=== PATIENT | female | born 1940 | race Caucasian/White ===

== ENCOUNTER 2017-05-01 12:00 | Emergency (ER) | payer OTHER ==
[2017-05-01] MEDS ORDERED: SODIUM CHLORIDE 1,000 ML IV STA (12:18)
[2017-05-01] MEDS ORDERED: ONDANSETRON 4 MG/2 ML VIAL IVPUSH ONE (12:18)
--- NOTE | 2017-05-01 12:48 | PDOC ---
History of Present Illness - General Chief Complaint: Nausea/Vomiting Stated Complaint: NAUSEA, VOMITING & DIZZINESS Time Seen by Provider: 05/01/17 12:17 History Source: Patient, Old Records Exam Limitations: No Limitations - History of Present Illness Initial Comments: 05/01/17 12:50 76-year-old female with history of hypertension and vertigo presents the emergency Department with complaints of feeling dizziness like the room is spinning with multiple episodes of nausea and vomiting this morning. The patient denies chest pain or difficulty breathing. She denies abdominal pain as well. The patient has been prescribed meclizine in the past and attempted to take it this morning however she was vomiting profusely and could not keep it down. The patient has had a workup for dizziness and tinnitus which included a CT head and an MRI in 2014 which were negative. The patient denies recent URI symptoms. She denies tinnitus at this time. Past History - Past Medical History Allergies/Adverse Reactions: Allergies Allergy/AdvReac Type Severity Reaction Status Date / Time No Known Allergies Allergy Verified 09/03/13 09:28 Home Medications: Ambulatory Orders Aspirin [ASA -] 81 mg PO DAILY #0 tab.chew 05/30/14 Famotidine [Pepcid] 40 mg PO DAILY 05/01/17 Levofloxacin [Levaquin] 500 mg PO DAILY #7 tablet 05/01/17 Anemia: No Asthma: No Cancer: No Cardiac Disorders: No CVA: No COPD: No CHF: No Dementia: No Diabetes: No GI Disorders: No Disorders: Yes (UTI) HTN: Yes Hypercholesterolemia: No Liver Disease: No Seizures: No Thyroid Disease: No - Surgical History Abdominal Surgery: Yes Appendectomy: No Cardiac Surgery: No Cholecystectomy: No GI Surgery: Yes (BLADDER LIFT) Lung Surgery: No Neurologic Surgery: No Orthopedic Surgery: No - Psycho/Social/Smoking Cessation Hx Anxiety: No Suicidal Ideation: No Smoking History: Never smoked Number of Cigarettes Smoked Daily: 0 Hx Alcohol Use: Yes (RARELY) Drug/Substance Use Hx: No Substance Use Type: None Hx Substance Use Treatment: No Review of Systems - Review of Systems Able to Perform ROS?: Yes Is the patient limited Andorran proficient: No Constitutional: Yes: See HPI HEENTM: No: Symptoms Reported Respiratory: No: Symptoms reported Cardiac (ROS): No: Symptoms Reported ABD/GI: Yes: See HPI : No: Symptoms Reported Musculoskeletal: No: Symptoms Reported Integumentary: No: Symptoms Reported Neurological: Yes: See HPI *Physical Exam - Physical Exam Comments: 05/01/17 12:51 GENERAL: Well developed, well nourished. Awake and alert. No acute distress. HEENT: Normocephalic, atraumatic. PERRLA, EOMI. No conjunctival pallor. Sclera are non- icteric. Moist mucous membranes. Oropharynx is clear. NECK: Supple. Full ROM. No JVD. No lymphadenopathy. CARDIOVASCULAR: Regular rate and rhythm. No murmurs, rubs, or gallops. Distal pulses are 2+ and symmetric. PULMONARY: No evidence of respiratory distress. Lungs clear to auscultation bilaterally. No wheezing, rales or rhonchi. ABDOMINAL: Soft. Non-tender. Non-distended. No rebound or guarding. No organomegaly. Normoactive bowel sounds. MUSCULOSKELETAL Normal range of motion at all joints. No bony deformities or tenderness. No CVA tenderness. EXTREMITIES: No cyanosis. No clubbing. No edema. No calf tenderness. SKIN: Warm and dry. Normal capillary refill. No rashes. No jaundice. NEUROLOGICAL: Alert, awake, appropriate. Cranial nerves 2-12 intact. Grossly non-focal exam. PSYCHIATRIC: Cooperative. Good eye contact. Appropriate mood and affect. ED Treatment Course - LABORATORY CBC & Chemistry Diagram: 05/01/17 13:00 05/01/17 13:00 - RADIOLOGY Radiology Studies Ordered: Category Date Time Status HEAD CT WITHOUT CONTRAST [CT] Stat CT Scan 05/01/17 12:18 Completed CHEST X-RAY PORTABLE* [RAD] Stat Radiology 05/01/17 12:18 Ordered Medical Decision Making - Medical Decision Making 05/01/17 12:51 76-year-old female with history of hypertension and vertigo presents to the emergency Department with complaints of dizziness as well as nausea and vomiting. Differential diagnosis includes but is not limited to: Vertigo, atypical presentation of ACS, dehydration, electrolyte abnormality, infection, toxic/metabolic derangement. Plan: 1. CT head 2. EKGshows normal sinus rhythm at 70 bpm with an occasional PVC but no acute ST segment changes 3. Labs and urine analysis 4. IV fluids for hydration 5. Antiemetics 6. Observe and reevaluate 05/01/17 15:53 Addendum: Labs are reviewed and are noted in the EMR. The urine analysis shows + 1 leukoesterase with white cells and red cells. I have reevaluated the patient at this time and she is feeling improved. The patient is tolerated water without nausea or vomiting. The patient is ambulatory with a steady gait. The plan is to discharge home with her son. Prescription for Levaquin has been sent to her pharmacy for the UTI and the first dose has been given in the emergency department. I've advised the patient that she should follow-up with her primary care physician is Dr. Heath within the next 1-3 days and return to the emergency department if symptoms persist, worsen, or new symptoms arise. *DC/Admit/Observation/Transfer Diagnosis at time of Disposition: Dizziness, Urinary tract infection - Discharge Dispostion Disposition: HOME Condition at time of disposition: Stable Admit: No - Prescriptions Prescriptions: Levofloxacin [Levaquin] 500 mg PO DAILY #7 tablet - Referrals Referrals: Maurice Heath MD [Primary Care Provider] - - Patient Instructions Additional Instructions: You're being treated for urinary tract infection with Levaquin 500 mgtake 1 pill daily for the next 7 days. You may take meclizine 25-50 mg every 6 hours as needed for dizziness. Please follow-up with Dr. Heath within the next 1-3 days and return to the emergency department if your symptoms persist, worsen, recur or new symptoms arise.
[2017-05-01 12:49] VITALS: TEMP 97.6; BMI 29.2
[2017-05-01] MEDS ORDERED: ONDANSETRON 4 MG/2 ML VIAL ONE (12:54)
[2017-05-01 13:23] LABS: BASOPHIL 0.8 % (0-2.0); EOSINOPHIL 0.7 % (0-4.5); MCH 30.5 pg (25.7-33.7); MCHC 36.1 g/dl (32.0-36.0); MEAN CELL VOLUME 84.4 fl (80-96); MEAN PLT VOLUME 7.2 fl (7.5-11.1); NEUTROPHILS 80.7 % (42.8-82.8); PLATELET COUNT 231 K/MM3 (134-434); RDW 13.4 % (11.6-15.6); WHITE BLOOD COUNT 4.6 K/mm3 (4.0-10.8)
[2017-05-01 13:34] LABS: ALBUMIN 3.9 g/dl (3.5-5.0); ALK PHOS 61 U/L (32-92); ANION GAP 6 (8-16); BILIRUBIN,TOTAL 0.7 mg/dl (0.2-1.0); CALCIUM 9.1 mg/dl (8.4-10.2); CO2 28 mmol/L (22-28); CPK 66 IU/L (26-192); CREATININE 0.8 mg/dl (0.6-1.3); GLUCOSE,RANDOM 152 mg/dl (74-106); SGOT/AST 17 U/L (10-42); SGPT/ALT 11 U/L (10-40); TOT PROT 6.5 g/dl (6.4-8.3)
[2017-05-01] MEDS ORDERED: MECLIZINE HCL 25 MG TABLET (FP) PO ONE (13:53)
[2017-05-01 13:54] LABS: TROPONIN I (DFP) < 0.03 ng/ml (0.03-0.50)
[2017-05-01] MEDS ORDERED: MECLIZINE HCL 25 MG TABLET (FP) ONE (13:59)
[2017-05-01 14:08] VITALS: BP 160/67; PULSE 65
[2017-05-01] MEDS ORDERED: ACETAMINOPHEN 325 MG TABLET (FP) PO ONE (15:02)
[2017-05-01] MEDS ORDERED: ACETAMINOPHEN 325 MG TABLET (FP) ONE (15:05)
[2017-05-01 15:22] LABS: URINE APPEARANCE Clear; URINE BILIRUBIN Negative (NEGATIVE); URINE BLOOD Trace-intact (NEGATIVE); URINE COLOR YELLOW; URINE GLUCOSE (UA) Negative (NEGATIVE); URINE KETONE Negative (NEGATIVE); URINE LEUK ESTERASE 2+ (NEGATIVE); URINE NITRITE Negative (NEGATIVE); URINE PROTEIN Negative (NEGATIVE); URINE UROBILINOGEN 0.2 (0.2-1.0)
[2017-05-01] MEDS ORDERED: LEVOFLOXACIN 500 MG TABLET (FP) PO ONE (15:54)
[2017-05-01] MEDS ORDERED: LEVOFLOXACIN 500 MG TABLET (FP) ONE (16:06)
--- NOTE | 2017-05-02 19:17 | EKG ---
Test Reason : Blood Pressure : / mmHG Vent. Rate : 071 BPM Atrial Rate : 071 BPM P-R Int : 164 ms QRS Dur : 094 ms QT Int : 404 ms P-R-T Axes : 070 014 050 degrees QTc Int : 439 ms SINUS RHYTHM WITH OCCASIONAL PREMATURE VENTRICULAR COMPLEXES POSSIBLE LEFT ATRIAL ENLARGEMENT BORDERLINE ECG NO PREVIOUS ECGS AVAILABLE Confirmed by ORIANA BURRELL MD ([id number]) on 05/02/2017 7:16:56 PM Referred By: ANGELIA HER Confirmed By:ORIANA BURRELL MD
== END 2017-05-01 16:20 | disposition home or self-care (01) ==
LOC: FER 12:00
PROC: 3E033GC Introduction of Other Therapeutic Substance into Peripheral Vein, Percutaneous Approach (ICD-10-PCS; principal; 2017-05-01)
PROC: 3E0337Z Introduction of Electrolytic and Water Balance Substance into Peripheral Vein, Percutaneous Approach (ICD-10-PCS; 2017-05-01)
DX: N39.0 Urinary tract infection, site not specified (principal); R42 Dizziness and giddiness
CPT/HCPCS: 36415; 70450-TC; 71010-TC; 80053; 81003; 81015; 84484; 85025; 87086; 93005; 96361; 96374; 99283-25

== ENCOUNTER 2017-11-03 20:15 | Inpatient (IN) | payer OTHER ==
--- NOTE | 2017-11-03 20:25 | PDOC ---
History of Present Illness - History of Present Illness Initial Comments: 11/03/17 20:30 The patient is a 77 year old female with history of hypertension who presents to the ED complaining of diffuse, crampy abdominal pain with associated nausea and nonbloody nonbilious vomiting. She now also complains of a burning sensation radiating up her midchest secondary to vomiting. No fever or chills. No palpitations or shortness of breath. No constipation or diarrhea. PAST MEDICAL HISTORY: htn PAST SURGICAL HISTORY: bladder lift FAMILY HISTORY: no pertinent history MEDICATIONS: reviewed ALLERGIES: As per nursing notes Adult ROS General: No fevers or chills, no weakness, no weight loss HEENT: No change in vision. No sore throat,. No ear pain CardioVascular: No chest pain or shortness of breath Respiratory:No cough, or wheezing. Gastrointestinal: +diffuse abdominal cramping, nausea, NBNB vomiting. No diarrhea or constipation, No rectal bleeding Genitourinary: No dysuria, hematuria, or frequency Musculoskeletal: No joint or muscle pain or swelling Neurologic: No headache, vertigo, dizziness or loss of consciousness Psychiatric: nor depression Skin: No rashes or easy bruising Endocrine: no increased thirst or abnormal weight change Allergic: no skin or latex allergy All other systems reviewed and normal Adult Exam: General: Well-nourished well-developed individual, no acute distress HEENT: Throat: Normal, tonsils normal, no erythema or exudate. +Dry mucous membranes. Neck: Supple, no meningeal signs, no lymphadenopathy Eyes::Pupils equal reactive and round, extraocular motion intact Chest: Nontender to palpation Cardiac: S1-S2 normal, regular rate and rhythm, no murmurs rubs or gallops Respiratory: Lungs clear to auscultation bilateral Abdomen: Soft, nondistended, normal bowel sounds, nontender to palpation diffusely Extremities: Warm, dry, no cyanosis, clubbing, or edema Skin: No rashes Neuro: Alert and oriented x3, nonfocal exam, grossly intact, normal gait Psych: Normal mood and affect 11/03/17 20:34 Documentation prepared by Adelina King, acting as medical support specialist for Harriet Ornelas MD. <Adelina King - Last Filed: 11/03/17 20:30> - General History Source: Patient Exam Limitations: No Limitations - History of Present Illness Initial Comments: Medical decision making: This is a 77-year-old female comes in complaining of nausea vomiting times this afternoon. Began with some crampy abdominal pain. Patient appears clinically dry we'll obtain labs to rule out electrolyte abnormalities and an infectious causes. CBC, comp, cardiac profile, lipase sent EKG ordered to rule out cardiac causes as there is a radiation and burning sensation towards into her chest. Will reassess and follow up 11/03/17 22:25 Reevaluation patient said she still has some mild nausea and a mild headache. Will medicate with some IV Pepcid and by mouth Tylenol. 11/03/17 23:08 Patient feels better post Reglan and Tylenol. Patient now appears well-hydrated assessment and plan: This is a 77-year-old female comes in complaining of some nausea and vomiting but no diarrhea, fevers. Patient was clinically mildly dehydrated on arrival. Patient was hydrated with a liter of fluid and antiemetics. Patient able to tolerate by mouth's will discharge patient home with a prescription for his Zofran and have her follow-up with her primary care doctor. <Harriet Ornelas I - Last Filed: 11/03/17 23:09> - General Chief Complaint: Nausea/Vomiting Stated Complaint: NAUSEA/VOMITING Time Seen by Provider: 11/03/17 20:17 Past History <Adelina King - Last Filed: 11/03/17 20:30> - Past Medical History Anemia: Yes Asthma: No Cancer: No Cardiac Disorders: No CVA: No COPD: No CHF: No Dementia: No Diabetes: No GI Disorders: No Disorders: Yes (UTI) HTN: Yes Hypercholesterolemia: No Liver Disease: No Seizures: No Thyroid Disease: No - Surgical History Abdominal Surgery: Yes Appendectomy: No Cardiac Surgery: No Cholecystectomy: No GI Surgery: Yes (BLADDER LIFT) Lung Surgery: No Neurologic Surgery: No Orthopedic Surgery: No - Suicide/Smoking/Psychosocial Hx Smoking History: Unknown if ever smoked Have you smoked in the past 12 months: No Number of Cigarettes Smoked Daily: 0 Information on smoking cessation initiated: No Hx Alcohol Use: Yes (RARELY) Drug/Substance Use Hx: No Substance Use Type: None Hx Substance Use Treatment: No <Harriet Ornelas I - Last Filed: 11/03/17 23:09> - Past Medical History Allergies/Adverse Reactions: Allergies Allergy/AdvReac Type Severity Reaction Status Date / Time No Known Allergies Allergy Verified 09/03/13 09:28 Home Medications: Ambulatory Orders Aspirin [ASA -] 81 mg PO DAILY #0 tab.chew 05/30/14 Famotidine [Pepcid] 40 mg PO DAILY 05/01/17 Ondansetron [Zofran Odt -] 4 mg SL TID #14 od.tablet 11/03/17 *Physical Exam - Vital Signs Last Vital Signs Temp Pulse Resp BP Pulse Ox 98 F 73 16 158/86 100 11/03/17 20:19 11/03/17 20:19 11/03/17 20:19 11/03/17 20:19 11/03/17 20:19 <Adelina King - Last Filed: 11/03/17 20:30> - Vital Signs Last Vital Signs Temp Pulse Resp BP Pulse Ox 98 F 73 16 158/86 100 11/03/17 20:19 11/03/17 20:19 11/03/17 20:19 11/03/17 20:19 11/03/17 20:19 <Harriet Ornelas I - Last Filed: 11/03/17 23:09> ED Treatment Course - LABORATORY CBC & Chemistry Diagram: 11/03/17 20:48 11/03/17 20:48 <Harriet Ornelas I - Last Filed: 11/03/17 23:09> *DC/Admit/Observation/Transfer <Adelina King - Last Filed: 11/03/17 20:30> - Discharge Dispostion Admit: No <Harriet Ornelas I - Last Filed: 11/03/17 23:09> Diagnosis at time of Disposition: Dehydration Nausea & vomiting Qualifiers: Vomiting type: unspecified Vomiting Intractability: non-intractable Qualified Code(s): R11.2 - Nausea with vomiting, unspecified - Discharge Dispostion Disposition: HOME Condition at time of disposition: Stable - Prescriptions Prescriptions: Ondansetron [Zofran Odt -] 4 mg SL TID #14 od.tablet - Referrals Referrals: Fader,Maurice M, MD [Primary Care Provider] - - Patient Instructions Printed Discharge Instructions: DI for Vomiting -- Adult Additional Instructions: Clear liquids only for the next 6 hours.. Zofran sublingual one every 6-8 hours if needed for nausea After that if you have had no further vomiting you may have bananas, rice, applesauce, or toast. If no further vomiting for another 8 hours you may have regular food. If you vomit again then nothing to eat or drink for 2 hours. then start back with the clear liquids. Return to the emergency department immediately with ANY new, persistent or worsening symptoms. You MUST call and follow up with your doctor tomorrow if not better. Please make sure your doctor reviews the results of your emergency evaluation. Return to the emergency department immediately with ANY new, persistent or worsening symptoms. Continue any medications as previously prescribed by your physician. You should follow up with your primary doctor as soon as possible regarding today's emergency department visit. . Please make sure your doctor reviews the results of your emergency evaluation. Thank you for coming to the Emergency Department today for your care. It was a pleasure to see you today. Please note that your evaluation is INCOMPLETE until you follow-up with your doctor. - Post Discharge Activity
[2017-11-03] MEDS ORDERED: SODIUM CHLORIDE 1,000 ML IV ONE (20:31)
[2017-11-03] MEDS ORDERED: FAMOTIDINE IV 20 MG/12 ML VIAL IVPUSH ONE (20:31)
[2017-11-03] MEDS ORDERED: ONDANSETRON 4 MG/2 ML VIAL IVPB ONE (20:31)
[2017-11-03] MEDS ORDERED: ONDANSETRON 4 MG/2 ML VIAL ONE (20:37)
[2017-11-03] MEDS ORDERED: FAMOTIDINE 20 MG/50 ML IVPB 20 MG/50 ML MG IVPB ONE (20:37)
[2017-11-03 21:00] LABS: BASO % 0.1 % (0-2.0); HEMATOCRIT 37.2 % (32.4-45.2); MCH 30.4 pg (25.7-33.7); MEAN CELL VOLUME 86.8 fl (80-96); MEAN PLT VOLUME 7.8 fl (7.5-11.1); MONO % 10.6 % (3.8-10.2); NEUT % 85.3 % (42.8-82.8); PLATELET COUNT 232 K/MM3 (134-434); RBC 4.29 M/mm3 (3.60-5.2); RDW 12.8 % (11.6-15.6); WHITE BLOOD COUNT 9.7 K/mm3 (4.0-10.8)
[2017-11-03 21:12] LABS: ALBUMIN 4.1 g/dl (3.5-5.0); ALK PHOS 65 U/L (32-92); ANION GAP 8 (8-16); BILIRUBIN,TOTAL 0.8 mg/dl (0.2-1.0); BLOOD UREA NITROGEN 28 mg/dl (7-18); CALCIUM 8.6 mg/dl (8.4-10.2); CHLORIDE 100 mmol/L (98-107); CO2 29 mmol/L (22-28); CREATININE 0.8 mg/dl (0.6-1.3); GLUCOSE,RANDOM 151 mg/dl (74-106); POTASSIUM 4.2 mmol/L (3.5-5.1); SGOT/AST 31 U/L (10-42); SGPT/ALT 15 U/L (10-40); SODIUM 137 mmol/L (136-145); TOT PROT 6.6 g/dl (6.4-8.3)
[2017-11-03 22:27] LABS: LIPASE 747 U/L (73-393)
[2017-11-03] MEDS ORDERED: ACETAMINOPHEN 325 MG TABLET (FP) PO ONE (22:27)
[2017-11-03] MEDS ORDERED: METOCLOPRAMIDE HCL INJECTION 10 MG/2 ML VIAL IVPUSH ONE (22:27)
[2017-11-03] MEDS ORDERED: ACETAMINOPHEN 325 MG TABLET (FP) ONE (22:37)
--- NOTE | 2017-11-03 23:19 | PDOC ---
*Physical Exam - Vital Signs Last Vital Signs Temp Pulse Resp BP Pulse Ox 98 F 73 16 158/86 100 11/03/17 20:19 11/03/17 20:19 11/03/17 20:19 11/03/17 20:19 11/03/17 20:19 ED Treatment Course - LABORATORY CBC & Chemistry Diagram: 11/04/17 10:26 11/04/17 10:26 - ADDITIONAL ORDERS Additional order review: Laboratory Results 11/03/17 11/03/17 11/03/17 20:48 20:48 20:48 Sodium 137 Potassium 4.2 Chloride 100 Carbon Dioxide 29 H Anion Gap 8 BUN 28 H Creatinine 0.8 Creat Clearance w eGFR > 60 Random Glucose 151 H D Calcium 8.6 Total Bilirubin 0.8 AST 31 D ALT 15 D Alkaline Phosphatase 65 Creatine Kinase 67 Troponin I < 0.03 Total Protein 6.6 Albumin 4.1 Lipase 747 H 11/03/17 20:48 RBC 4.29 MCV 86.8 MCHC 35.0 RDW 12.8 MPV 7.8 Neutrophils % 85.3 H Lymphocytes % 3.0 L Monocytes % 10.6 H Eosinophils % 1.0 Basophils % 0.1 - Medications Given in the ED: ED Medications Discontinued Medications Generic Name Dose Route Start Last Admin Trade Name Freq PRN Reason Stop Dose Admin Acetaminophen 650 mg 11/03/17 22:27 11/03/17 22:40 Tylenol - PO 11/03/17 22:28 650 mg ONCE ONE Administration Famotidine 20 mg in 12 mls @ 144 mls/hr 11/03/17 20:31 11/03/17 20:47 Pepcid 20 Mg/12 Ml Push IVPUSH 11/03/17 20:35 144 mls/hr ONCE ONE Administration Sodium Chloride 1,000 mls @ 1,000 mls/hr 11/03/17 20:31 11/03/17 20:46 Normal Saline - IV 11/03/17 21:30 1,000 mls/hr .Q1H ONE Administration Metoclopramide HCl 10 mg 11/03/17 22:27 11/03/17 22:40 Reglan Injection - IVPUSH 11/03/17 22:28 10 mg ONCE ONE Administration Ondansetron HCl 8 mg 11/03/17 20:31 11/03/17 20:48 Zofran Injection IVPB 11/03/17 20:32 8 mg ONCE ONE Administration Progress Note - Progress Note Progress Note: Shortly after patient was told she could E discharged I realized that her lipase was markedly elevated at 757. Patient unfortunately had left the emergency room so I called her and she came back for a CAT scan and probable admission. 01:30 Reassessment patient comfortable at this time no further vomiting CT scan shows no evidence of acute pancreatitis however does show cholelithiasis with some intrahepatic biliary dilatation Patient's elevated lipase most likely is secondary to cholelithiasis and biliary disease. We'll obtain an ultrasound to further delineate patient's biliary tract. 06:00 US no acute cholecystitis; +gallstones, will place in observation as pt still nausous and lipase will need repeating. Discussed with admitting hospitalist was accepted patient for observation status. *DC/Admit/Observation/Transfer Diagnosis at time of Disposition: Dehydration Nausea & vomiting Qualifiers: Vomiting type: unspecified Vomiting Intractability: non-intractable Qualified Code(s): R11.2 - Nausea with vomiting, unspecified Cholelithiasis Qualifiers: Cholelithiasis location: gallbladder Cholecystitis presence: without cholecystitis - Discharge Dispostion Admit: Yes - Prescriptions - Referrals - Patient Instructions - Post Discharge Activity
[2017-11-04] MEDS ORDERED: SODIUM CHLORIDE 1,000 ML IV SCH ×2 (07:00)
[2017-11-04] MEDS: ENALAPRIL MALEATE 10 MG TABLET (FP) PO SCH (09:52)
[2017-11-04] MEDS ORDERED: FAMOTIDINE 20 MG TABLET PO SCH (10:00)
[2017-11-04] MEDS ORDERED: ASPIRIN 81 MG CHEWABLE TABLETS PO SCH (10:00)
[2017-11-04 10:07] VITALS: BMI 24.3
[2017-11-04 10:40] LABS: BASO % 0.1 % (0-2.0); EOS % 1.4 % (0-4.5); HEMOGLOBIN 11.7 GM/dl (10.7-15.3); LYMPH % 5.3 % (8-40); MCH 29.5 pg (25.7-33.7); MCHC 33.3 g/dl (32.0-36.0); MEAN CELL VOLUME 88.7 fl (80-96); MEAN PLT VOLUME 8.4 fl (7.5-11.1); MONO % 6.7 % (3.8-10.2); NEUT % 86.5 % (42.8-82.8); PLATELET COUNT 218 K/MM3 (134-434); RBC 3.95 M/mm3 (3.60-5.2); RDW 12.8 % (11.6-15.6); WHITE BLOOD COUNT 5.1 K/mm3 (4.0-10.8)
[2017-11-04 11:06] LABS: ALBUMIN 3.3 g/dl (3.5-5.0); ALK PHOS 60 U/L (32-92); ANION GAP 8 (8-16); BLOOD UREA NITROGEN 25 mg/dl (7-18); CALCIUM 8.1 mg/dl (8.4-10.2); CHLORIDE 101 mmol/L (98-107); CO2 26 mmol/L (22-28); GLUCOSE,RANDOM 116 mg/dl (74-106); MAGNESIUM 1.6 mg/dL (1.8-2.4); PHOSPHOROUS 3.2 mg/dl (2.5-4.6); SGOT/AST 31 U/L (10-42); SGPT/ALT 18 U/L (10-40); SODIUM 135 mmol/L (136-145); TOT PROT 5.6 g/dl (6.4-8.3)
[2017-11-04 11:19] LABS: URINE APPEARANCE Clear; URINE BILIRUBIN Negative (NEGATIVE); URINE GLUCOSE (UA) Negative (NEGATIVE); URINE KETONE Negative (NEGATIVE); URINE NITRITE Negative (NEGATIVE); URINE PROTEIN Negative (NEGATIVE); URINE UROBILINOGEN 0.2 (0.2-1.0)
[2017-11-04 11:20] LABS: URINE BLOOD Trace-lysed (NEGATIVE); URINE LEUK ESTERASE TRACE (NEGATIVE)
[2017-11-04 11:22] LABS: URINE COLOR YELLOW
[2017-11-04] MEDS ORDERED: SODIUM CHLORIDE 500 ML IV STA (11:36)
[2017-11-04] MEDS: SODIUM CHLORIDE 1,000 ML IV SCH (11:45)
[2017-11-04 11:47] LABS: CREATININE < 0.8 mg/dl (0.6-1.3)
--- NOTE | 2017-11-04 14:06 | PN ---
Progress Note (short form) - Note Progress Note: Consult called for Dr. Campuzano. Had d/w 2nd floor [place] staff and MANUEL Garcia. They are aware Dr. Campuzano is on vacation. While I am covering him I am not concession manager this weekend and the coverage I have for [facility] not available to cover [place]. I explained this to them and that the patient would need proper continued coverage after the initial consult. In review of the [employer] system it appears as though patient is a patient of Dr. Jona Crouch. They explained that he was called but unavailable. They also called Dr. Sahu and are awaiting call back. I explained that if they cannot obtain a sv[employer] research [employer] operations to follow the patient at [place] and potentially through the weekend if necessary, The patient should be transferred to [facility] today for evaluation.
--- NOTE | 2017-11-04 14:57 | HP ---
CHIEF COMPLAINT: Vomiting PCP: Dr. Heath HISTORY OF PRESENT ILLNESS: The patient is a 77 year-old female with a PMH significant for HTN. Presented to the [facility] ED last night with acute onset of nausea, vomiting, abdominal pain, and a burning sensation radiating up to her midchest. She was discharged to home but called back when she was found to have an elevatd lipase. MRCP shows choledocholilithiasis in distal CBD and mild proximal CBD and intrahepatic ductal dilitation. ER course was notable for: (1) MRCP as above (2) Lipase 747 Recent Travel: No PAST MEDICAL HISTORY: Hypertension PAST SURGICAL HISTORY: Bladder lift Social History: Smoking: never Alcohol: rare Drugs: no Family History: Allergies No Known Allergies Allergy (Verified 09/03/13 09:28) HOME MEDICATIONS: Home Medications Medication Instructions Recorded Aspirin [ASA -] 81 mg PO DAILY #0 tab.chew 05/30/14 Famotidine [Pepcid] 40 mg PO DAILY 05/01/17 Ondansetron [Zofran Odt -] 4 mg SL TID #14 od.tablet 11/03/17 REVIEW OF SYSTEMS CONSTITUTIONAL: Absent: fever, chills, diaphoresis, generalized weakness, malaise, loss of appetite, weight change HEENT: Absent: rhinorrhea, nasal congestion, throat pain, throat swelling, difficulty swallowing, mouth swelling, ear pain, eye pain, visual changes CARDIOVASCULAR: Absent: chest pain, syncope, palpitations, irregular heart rate, lightheadedness , peripheral edema RESPIRATORY: Absent: cough, shortness of breath, dyspnea with exertion, orthopnea, wheezing, stridor, hemoptysis GASTROINTESTINAL: +abdominal pain, nausea, vomiting Absent: abdominal distension, diarrhea, constipation, melena, hematochezia GENITOURINARY: Absent: dysuria, frequency, urgency, hesitancy, hematuria, flank pain, genital pain MUSCULOSKELETAL: Absent: myalgia, arthralgia, joint swelling, back pain, neck pain SKIN: Absent: rash, itching, pallor HEMATOLOGIC/IMMUNOLOGIC: Absent: easy bleeding, easy bruising, lymphadenopathy, frequent infections ENDOCRINE: Absent: unexplained weight gain, unexplained weight loss, heat intolerance, cold intolerance NEUROLOGIC: Absent: headache, focal weakness or paresthesias, dizziness, unsteady gait, seizure, mental status changes, bladder or bowel incontinence PSYCHIATRIC: Absent: anxiety, depression, suicidal or homicidal ideation, hallucinations. PHYSICAL EXAMINATION Vital Signs - 24 hr 11/03/17 11/04/17 11/04/17 20:19 06:00 09:50 Temperature 98 F 99.5 F 98.8 F Pulse Rate 73 71 Pulse Rate [ 73 Radial] Respiratory 16 16 16 Rate Blood Pressure 158/86 123/59 Blood Pressure 128/67 [Arm] O2 Sat by Pulse 100 97 Oximetry (%) 11/04/17 11/04/17 11:36 14:41 Temperature 98.5 F 98.5 F Pulse Rate 79 71 Pulse Rate [ Radial] Respiratory 18 20 Rate Blood Pressure 120/59 122/57 Blood Pressure [Arm] O2 Sat by Pulse Oximetry (%) GENERAL: Awake, alert, and fully oriented, in no acute distress. HEAD: Normal with no signs of trauma. EYES: Pupils equal, round and reactive to light, extraocular movements intact, sclera anicteric, conjunctiva clear. No lid lag. EARS, NOSE, THROAT: Ears normal, nares patent, oropharynx clear without exudates. Moist mucous membranes. NECK: Normal range of motion, supple without lymphadenopathy, JVD, or masses. LUNGS: Breath sounds equal, clear to auscultation bilaterally. No wheezes, and no crackles. No accessory muscle use. HEART: Regular rate and rhythm, normal S1 and S2 without murmur, rub or gallop. ABDOMEN: Soft, nontender, not distended, normoactive bowel sounds, no guarding, no rebound MUSCULOSKELETAL: Normal range of motion at all joints. No bony deformities or tenderness. No CVA tenderness. UPPER EXTREMITIES: 2+ pulses, warm, well-perfused. No cyanosis. No clubbing. No peripheral edema. LOWER EXTREMITIES: 2+ pulses, warm, well-perfused. No calf tenderness. No peripheral edema. NEUROLOGICAL: Cranial nerves II-XII intact. Normal speech. SKIN: Warm, dry, normal turgor Laboratory Results - last 24 hr 11/03/17 11/03/17 11/03/17 20:48 20:48 20:48 WBC 9.7 RBC 4.29 Hgb 13.0 Hct 37.2 MCV 86.8 MCH 30.4 MCHC 35.0 RDW 12.8 Plt Count 232 MPV 7.8 Neutrophils % 85.3 H Lymphocytes % 3.0 L Monocytes % 10.6 H Eosinophils % 1.0 Basophils % 0.1 Sodium 137 Potassium 4.2 Chloride 100 Carbon Dioxide 29 H Anion Gap 8 BUN 28 H Creatinine 0.8 Creat Clearance w eGFR > 60 Random Glucose 151 H D Calcium 8.6 Phosphorus Magnesium Total Bilirubin 0.8 AST 31 D ALT 15 D Alkaline Phosphatase 65 Creatine Kinase Troponin I < 0.03 Total Protein 6.6 Albumin 4.1 Lipase 747 H Urine Color Urine Appearance Urine pH Ur Specific [place] Urine Protein Urine Glucose (UA) Urine Ketones Urine Blood Urine Nitrite Urine Bilirubin Urine Urobilinogen Ur Leukocyte Esterase 11/03/17 11/04/17 11/04/17 20:48 06:45 10:26 WBC 5.1 D RBC 3.95 Hgb 11.7 Hct 35.0 MCV 88.7 MCH 29.5 MCHC 33.3 RDW 12.8 Plt Count 218 MPV 8.4 Neutrophils % 86.5 H Lymphocytes % 5.3 L Monocytes % 6.7 Eosinophils % 1.4 Basophils % 0.1 Sodium Potassium Chloride Carbon Dioxide Anion Gap BUN Creatinine Creat Clearance w eGFR Random Glucose Calcium Phosphorus Magnesium Total Bilirubin AST ALT Alkaline Phosphatase Creatine Kinase 67 Troponin I Total Protein Albumin Lipase 123 Urine Color Urine Appearance Urine pH Ur Specific [place] Urine Protein Urine Glucose (UA) Urine Ketones Urine Blood Urine Nitrite Urine Bilirubin Urine Urobilinogen Ur Leukocyte Esterase 11/04/17 11/04/17 10:26 10:33 WBC RBC Hgb Hct MCV MCH MCHC RDW Plt Count MPV Neutrophils % Lymphocytes % Monocytes % Eosinophils % Basophils % Sodium 135 L Potassium 4.0 Chloride 101 Carbon Dioxide 26 Anion Gap 8 BUN 25 H Creatinine < 0.8 Creat Clearance w eGFR > 60 Random Glucose 116 H D Calcium 8.1 L Phosphorus 3.2 Magnesium 1.6 L Total Bilirubin 1.0 D AST 31 ALT 18 Alkaline Phosphatase 60 Creatine Kinase Troponin I Total Protein 5.6 L Albumin 3.3 L Lipase Urine Color Yellow Urine Appearance Clear Urine pH 5.0 Ur Specific [place] <= 1.005 Urine Protein Negative Urine Glucose (UA) Negative Urine Ketones Negative Urine Blood Trace-lysed H Urine Nitrite Negative Urine Bilirubin Negative Urine Urobilinogen 0.2 Ur Leukocyte Esterase Trace H D ASSESSMENT/PLAN: 77 year-old female with a PMH significant for HTN. Admitted for choledocholilithiasis. Choledocholilithiasis --MRCP: choledocholilithiasis in distal CBD; mild proximal CBD and intrahepatic ductal dilitation --no fever, no jaundice, benign abdominal exam; lipase normalized, LFTs wnl --collect and send blood cultures; no antibiotics for now --IV fluids --NPO --home ASA held --transfer to [facility] for ERCP with Dr. Lopes --surgery Dr. Martinez will follow Hypertension --BP stable --continue enalapril Hypomagnesemia --repleted FEN Fluids: NS 500mL x 1; then 125mL/hr Electrolytes: replete as indicated Nutrition: NPO DVT prophylaxis: mechanical only due to upcoming procedures Physical therapy evaluation Dispo: continues to require inpatient care. Full code. Visit type - Emergency Visit Emergency Visit: Yes ED Registration Date: 11/04/17 Care time: The patient presented to the Emergency Department on the above date and was hospitalized for further evaluation of their emergent condition. - New Patient This patient is new to me today: Yes Date on this admission: 11/04/17 - Critical Care Critical Care patient: No
[2017-11-04] MEDS ORDERED: MAGNESIUM SULF 50% (8.12 MEQ/2 ML-1 GM VIAL) IVPB ONE (15:02)
[2017-11-04] MEDS ORDERED: MAGNESIUM SULFATE IN WATER 2 GM/50 ML IVPB IVPB ONE (15:30)
[2017-11-04] MEDS ORDERED: oxyCODONE HCL 5 MG TABLET PO ONE (16:21)
[2017-11-04 17:35] LABS: URIC ACID CRYSTALS FEW /hpf (NONE SEEN); URINE BACTERIA FEW /hpf (NEGATIVE); URINE RBC 0-2 /hpf (0-3)
--- NOTE | 2017-11-04 17:36 | CON.GI ---
Consult Consult Specialty:: GI: Dr. Barrientos Covering for Dr. Campuzano Referred by:: Hospitalist Service Reason for Consultation:: Nausea/vomiting, choledocholithiasis - History of Present Illness Chief Complaint: Nausea / Vomiting History of Present Illness: 77F admitted through [facility] ER last night for evaluation of N/V. She states that the nausea started abruptly, around 7 pm last night along with bilious vomiting. She did have some upper abdominal discomfort that occurred only after the retching and vomiting. There3 was no diarrhea. She denies any recent travel or sick contacts with similar complaints. She does recall having similar episodes in the past along with episodes of severe nausea after eating after which she would try inducing vomiting. In ER she was noted to be afebrile , and had blood work revealing a WBC of 9.7. LFT's were normal and lipase was elevated [place] 747. CT scan revealed a large gallstone without evidence of cholecystitis. MRCP revealed a mildly dilated CBD of 8mm, dilated intrahepatics and small filling defect in the distal duct. She has had previous GI work-up with Dr. Jona Crouch and she recalls having colonoscopy and possibly endoscopy as well however does not recall findings. She does not remember being told of polyps. She currently denies abdominal pain and says that she felt cold when having the MRCP performed. 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 Place of : Other ([place]) History of Recent Travel: No Home Medications - Allergies Allergies/Adverse Reactions: Allergies Allergy/AdvReac Type Severity Reaction Status Date / Time No Known Allergies Allergy Verified 09/03/13 09:28 - Home Medications Home Medications: Ambulatory Orders Aspirin [ASA -] 81 mg PO DAILY #0 tab.chew 05/30/14 Famotidine [Pepcid] 40 mg PO DAILY 05/01/17 Ondansetron [Zofran Odt -] 4 mg SL TID #14 od.tablet 11/03/17 Family Disease History - Family Disease History Family Disease History: Heart Disease: Mother (: 66: [place]), Other: Father ( : 80: CVA), Brother (4: healthy), Sister (4: healthy), Son (2, healthy) Other Family History: No family history of colorectal cancer or other GI malignancy Review of Systems - Review of Systems Constitutional: reports: Chills. denies: Unintentional Wgt. Loss Cardiovascular: denies: Chest Pain Respiratory: denies: SOB Gastrointestinal: reports: Abdominal Pain, Indigestion, Nausea, Vomiting. denies: Constipation, Melena, Rectal Bleeding, Vomiting Blood Physical Exam-GI Vital Signs: Vital Signs Temperature 99.9 F Oral, 101.1 Rectal 11/04/17 17:00 Pulse Rate 71 11/04/17 17:00 Respiratory Rate 20 11/04/17 17:00 Blood Pressure 122/57 11/04/17 17:00 O2 Sat by Pulse Oximetry (%) 97 11/04/17 17:00 Constitutional: Yes: Calm Eyes: No: Sclera Icterus Cardiovascular: Yes: Regular Rate and Rhythm. No: Murmur Respiratory: Yes: CTA Bilaterally Gastrointestinal Inspection: Yes: Scars (horizontal pelvic surgical scar). No: Distention ...Auscultate: Yes: Normoactive Bowel Sounds ...Palpate: Yes: Other (Negative Jarquin's). No: Guarding, Hepatomegaly, Splenomegaly, Tenderness ...Percussion: No: Tympanitic Edema: No (No LE edema) Neurological: Yes: Alert, Oriented Labs: CBC, BMP 11/04/17 10:26 11/04/17 10:26 Hepatic Panel Total Bilirubin 1.0 mg/dl (0.2-1.0) D 11/04/17 10:26 AST 31 U/L (10-42) 11/04/17 10:26 ALT 18 U/L (10-40) 11/04/17 10:26 Alkaline Phosphatase 60 U/L (32-92) 11/04/17 10:26 Albumin 3.3 g/dl (3.5-5.0) L 11/04/17 10:26 Imaging - Results Cat Scan: Report Reviewed, Image Reviewed MRI: Report Reviewed Problem List - Problems (1) Nausea & vomiting Assessment/Plan: Imp: With dilated biliary tract and small filling defect noted in the distal duct. Lipase transiently elevated as well. Given history and current presentation ? if Ms. Jeter has been having intermittent passage of small stones, biliary colic secondary to the large gallstone described or both. Temp noted 101.1 tonight during eval Plan: NPO IV Hydration IV Abx AM labs ordered including coags and T&S Plan is for patient to be transferred to [facility] for continued monitoring and in preparation for ERCP. I discussed the plan with Ms. Jeter and discussed the procedure. We discussed potential risks of the procedure like but not limited to bleeding, perforation requiring surgery to repair, infection, sedation medication effects, pancreatitis (5-10% of the cases) all of which could be potentially life threatening. She has agreed to the procedure. Surgical consult as she will need cholecystectomy when duct cleared. Discussed case w/ MANUEL Ramirez Dr. will be covering the weekend Code(s): R11.2 - NAUSEA WITH VOMITING, UNSPECIFIED Qualifiers: Vomiting type: unspecified Vomiting Intractability: non-intractable Qualified Code(s): R11.2 - Nausea with vomiting, unspecified
[2017-11-04] MEDS: ONDANSETRON 4 MG/2 ML VIAL IVPUSH PRN (20:17)
[2017-11-04] MEDS ORDERED: morphine CARPU-JECT 2 MG/1 ML DISP.SYRIN IVPUSH PRN (20:30)
[2017-11-05] MEDS: SODIUM CHLORIDE 1,000 ML IV SCH ×3 (01:56→14:34)
[2017-11-05 08:32] LABS: BASO % 0.3 % (0-2.0); EOS % 2.8 % (0-4.5); HEMATOCRIT 33.6 % (32.4-45.2); HEMOGLOBIN 11.2 GM/dL (10.7-15.3); LYMPH % 24.4 % (8-40); MCH 29.8 pg (25.7-33.7); MCHC 33.3 g/dl (32.0-36.0); MEAN CELL VOLUME 89.5 fl (80-96); MEAN PLT VOLUME 8.3 fl (7.5-11.1); MONO % 14.1 % (3.8-10.2); NEUT % 58.4 % (42.8-82.8); PLATELET COUNT 151 K/MM3 (134-434); RBC 3.75 M/mm3 (3.60-5.2); RDW 13.7 % (11.6-15.6); WHITE BLOOD COUNT 2.9 K/mm3 (4.0-10.0)
[2017-11-05 08:49] LABS: ACTIVATED PTT 26.7 SECONDS (26.9-34.4); INR 1.07 (0.82-1.09); PROTHROMBIN TIME (PATIENT) 12.1 SEC (9.98-11.88)
[2017-11-05] MEDS ORDERED: PT OWN MED DRAWER 7, Y5N ONE (10:08)
[2017-11-05] MEDS: ENALAPRIL MALEATE 10 MG TABLET (FP) PO SCH (10:10)
[2017-11-05] MEDS: RANITIDINE HCL 150 MG TABLET (FP) PO SCH (10:11)
[2017-11-05 10:19] LABS: ALBUMIN 2.8 g/dl (3.4-5.0); ANION GAP 7 (8-16); BILIRUBIN,TOTAL 0.8 mg/dL (0.2-1.0); BLOOD UREA NITROGEN 16 mg/dL (7-18); CALCIUM 7.4 mg/dL (8.5-10.1); CHLORIDE 105 mmol/L (98-107); CO2 29 mmol/L (21-32); CREATININE 0.7 mg/dL (0.55-1.02); GLUCOSE,RANDOM 85 mg/dL (74-106); MAGNESIUM 1.9 mg/dL (1.8-2.4); PHOSPHOROUS 2.8 mg/dL (2.5-4.9); SGOT/AST 57 U/L (15-37); SGPT/ALT 47 U/L (12-78); SODIUM 141 mmol/L (136-145)
[2017-11-05 10:20] LABS: ALK PHOS 116 U/L (45-117); TOT PROT 5.4 g/dl (6.4-8.2)
--- NOTE | 2017-11-05 12:13 | EKG ---
Test Reason : Blood Pressure : / mmHG Vent. Rate : 073 BPM Atrial Rate : 073 BPM P-R Int : 174 ms QRS Dur : 096 ms QT Int : 404 ms P-R-T Axes : 080 020 038 degrees QTc Int : 445 ms SINUS RHYTHM WITH OCCASIONAL PREMATURE VENTRICULAR COMPLEXES OTHERWISE NORMAL ECG WHEN COMPARED WITH ECG OF 03-NOV-2017 20:55, PREMATURE VENTRICULAR COMPLEXES ARE NOW PRESENT Confirmed by ALTAGRACIA SARMIENTO, MARNIE ([id number]) on 11/05/2017 12:12:53 PM Referred By: Confirmed By:MARNIE FRIAS MD
--- NOTE | 2017-11-05 12:16 | CONSULT ---
- Consultation REQUESTING PROVIDER: Anthony SOCIAL CONTACT WORKER CONSULT REQUEST: We have been asked to surgically evaluate this patient for ( specify). PCP:Evelyne Cruz HISTORY OF PRESENT ILLNESS: 77 y/o female presented to [facility] w/nausea and vomiting and abdominal pain; w/u revealed cholelithiasis and choledocholithiasis ; patient was xferred her for ERCP and related procedures and possible lap reddy. PMHx: HTN PSHx: bladder surgery Home Medications Medication Instructions Recorded Aspirin [ASA -] 81 mg PO DAILY #0 tab.chew 05/30/14 Famotidine [Pepcid] 40 mg PO DAILY 05/01/17 Ondansetron [Zofran Odt -] 4 mg SL TID #14 od.tablet 11/03/17 Allergies Allergy/AdvReac Type Severity Reaction Status Date / Time No Known Allergies Allergy Verified 09/03/13 09:28 PHYSICAL EXAM: GENERAL: Awake, alert, and fully oriented, in no acute distress. HEAD: Normal with no signs of trauma. EYES: sclera anicteric, conjunctiva clear. NECK: Normal ROM, supple without lymphadenopathy, JVD, or masses. ABDOMEN: Soft, nontender, not distended, normoactive bowel sounds, no guarding, no rebound, no masses. No organomegaly. No hernias. MUSCULOSKELETAL: Normal ROM at all joints. No bony deformities or tenderness. No CVA tenderness. UPPER EXTREMITIES: 2+ pulses, warm, well-perfused. No cyanosis. Cap refill <2 seconds. No peripheral edema. LOWER EXTREMITIES: 2+ pulses, warm, well-perfused. No calf tenderness. No peripheral edema. NEUROLOGICAL: Normal speech, gait not observed. PSYCH: Cooperative. Good eye contact. Appropriate mood and affect. SKIN: Warm, dry, normal turgor, no rashes or lesions noted. Vital Signs Temperature 98.1 F 11/05/17 06:39 Pulse Rate 64 11/05/17 06:39 Respiratory Rate 20 11/05/17 06:39 Blood Pressure 123/59 11/05/17 06:39 O2 Sat by Pulse Oximetry (%) 94 L 11/04/17 21:00 Lab Results WBC 2.9 K/mm3 (4.0-10.0) L 11/05/17 07:00 RBC 3.75 M/mm3 (3.60-5.2) 11/05/17 07:00 Hgb 11.2 GM/dL (10.7-15.3) 11/05/17 07:00 Hct 33.6 % (32.4-45.2) 11/05/17 07:00 MCV 89.5 fl (80-96) 11/05/17 07:00 MCHC 33.3 g/dl (32.0-36.0) 11/05/17 07:00 RDW 13.7 % (11.6-15.6) 11/05/17 07:00 Plt Count 151 K/MM3 (134-434) 11/05/17 07:00 Sodium 141 mmol/L (136-145) 11/05/17 07:00 Potassium 4.0 mmol/L (3.5-5.1) 11/05/17 07:00 Chloride 105 mmol/L (98-107) 11/05/17 07:00 Carbon Dioxide 29 mmol/L (21-32) 11/05/17 07:00 Anion Gap 7 (8-16) L 11/05/17 07:00 BUN 16 mg/dL (7-18) 11/05/17 07:00 Creatinine 0.7 mg/dL (0.55-1.02) 11/05/17 07:00 Random Glucose 85 mg/dL (74-106) 11/05/17 07:00 Calcium 7.4 mg/dL (8.5-10.1) L 11/05/17 07:00 Blood Type A POSITIVE 11/05/17 07:00 Antibody Screen Negative 11/05/17 07:00 INR 1.07 (0.82-1.09) 11/05/17 07:00 w/u to date reviewed IMP: cholelithiasis/choledocholithiasis PLAN:Continue present tx.; for ERCP 11/07/17 and then lap reddy. Nilson Martinez MD FACS Visit type - Case Type Case Type: ED Admission - Emergency Emergency Visit: Yes ED Registration Date: 11/04/17 Care time: The patient presented to the Emergency Department on the above date and was hospitalized for further evaluation of their emergent condition. - New patient This patient is new to me today: Yes Date on this admission: 11/07/17 - Critical Care Critical Care patient: No
--- NOTE | 2017-11-05 15:26 | PN ---
GI Progress Note Subjective: GI F/U NOTE FOR DR WELSH: PT STATES THAT SHE FEELS MUCH BETTER PAIN FREE HAD NAUSEA LAST NIGHT THAT RESOLVED WITH ZOFRAN NO F/C/S FEELS HUNGRY NO BM - Objective Vital Signs: Vital Signs Temperature 98.2 F 11/05/17 15:06 Pulse Rate 68 11/05/17 15:06 Respiratory Rate 18 11/05/17 15:06 Blood Pressure 143/68 11/05/17 15:06 O2 Sat by Pulse Oximetry (%) 94 L 11/04/17 21:00 Constitutional: Well Nourished, No Distress, Calm Eyes: Yes: WNL (+BS/ SOFT/ NO RUQ TENDERNESS MINIMAL LUQ TENDERNESS NO REBOUND OR GUARDING) Labs: CBC, BMP 11/05/17 07:00 11/05/17 07:00 INR, PTT INR 1.07 (0.82-1.09) 11/05/17 07:00 Assessment/Plan 77F ADMIT WITH N/ABD PAIN CHOLELITHIASIS AND CHOLEDOCHOLITHIASIS WITHOUT EVIDENCE OF CHOLANGITIS CURRETNLY PAIN FREE, AFEBRILE, AND NORMAL LFT'S ON IV ABX FOR ERCP 11/07 FOR CBD STONE EXTRACTION THEN WILL NEED L.C. NPO AT [facility] TUESDAY FOR ERCP 11/07 MD CANDIDA
--- NOTE | 2017-11-05 17:24 | PN ---
Physical Exam: SUBJECTIVE: Patient seen and examined. Sitting on edge of bed. Family visiting. Feels better, no vomiting. OBJECTIVE: Vital Signs Period Temp Pulse Resp BP Sys/Mayorga Pulse Ox Last 24 Hr 98.1 F-99.0 F 64-78 18-20 123-145/59-74 94-94 GENERAL: Awake, alert, and fully oriented, in no acute distress. LUNGS: Breath sounds equal, clear to auscultation bilaterally. No wheezes, and no crackles. No accessory muscle use. HEART: Regular rate and rhythm, normal S1 and S2 ABDOMEN: Soft, nontender, not distended, normoactive bowel sounds, no guarding, no rebound UPPER EXTREMITIES: 2+ pulses, warm, well-perfused. No cyanosis. No clubbing. No peripheral edema. LOWER EXTREMITIES: 2+ pulses, warm, well-perfused. No calf tenderness. No peripheral edema. NEUROLOGICAL: Cranial nerves II-XII intact. Normal speech. SKIN: Warm, dry, normal turgor Laboratory Results - last 24 hr 11/04/17 11/04/17 11/04/17 10:33 16:25 23:00 WBC RBC Hgb Hct MCV MCH MCHC RDW Plt Count MPV Neutrophils % Lymphocytes % Monocytes % Eosinophils % Basophils % PT with INR INR PTT (Actin FS) Sodium Potassium Chloride Carbon Dioxide Anion Gap BUN Creatinine Creat Clearance w eGFR Random Glucose Calcium Phosphorus Magnesium Total Bilirubin AST ALT Alkaline Phosphatase Troponin I < 0.02 C-Reactive Protein 2.0 H Total Protein Albumin Urine RBC 0-2 Urine WBC 2-4 Uric Acid Crystals Few Urine Bacteria Few Blood Type Antibody Screen 11/05/17 11/05/17 11/05/17 07:00 07:00 07:00 WBC 2.9 L RBC 3.75 Hgb 11.2 Hct 33.6 MCV 89.5 MCH 29.8 MCHC 33.3 RDW 13.7 Plt Count 151 MPV 8.3 Neutrophils % 58.4 Lymphocytes % 24.4 Monocytes % 14.1 H Eosinophils % 2.8 Basophils % 0.3 PT with INR INR PTT (Actin FS) Sodium 141 Potassium 4.0 Chloride 105 Carbon Dioxide 29 Anion Gap 7 L BUN 16 Creatinine 0.7 Creat Clearance w eGFR > 60 Random Glucose 85 Calcium 7.4 L Phosphorus 2.8 Magnesium 1.9 Total Bilirubin 0.8 AST 57 H ALT 47 Alkaline Phosphatase 116 Troponin I C-Reactive Protein 1.9 H Total Protein 5.4 L Albumin 2.8 L Urine RBC Urine WBC Uric Acid Crystals Urine Bacteria Blood Type Antibody Screen 11/05/17 11/05/17 11/05/17 07:00 07:00 11:00 WBC RBC Hgb Hct MCV MCH MCHC RDW Plt Count MPV Neutrophils % Lymphocytes % Monocytes % Eosinophils % Basophils % PT with INR 12.10 H INR 1.07 PTT (Actin FS) 26.7 L Sodium Potassium Chloride Carbon Dioxide Anion Gap BUN Creatinine Creat Clearance w eGFR Random Glucose Calcium Phosphorus Magnesium Total Bilirubin AST ALT Alkaline Phosphatase Troponin I C-Reactive Protein Total Protein Albumin Urine RBC Urine WBC Uric Acid Crystals Urine Bacteria Blood Type A POSITIVE A POSITIVE Antibody Screen Negative Current Medications Generic Name Dose Route Start Last Admin Trade Name Freq PRN Reason Stop Dose Admin Enalapril Maleate 10 mg 11/04/17 10:00 11/05/17 10:10 Vasotec - PO 10 mg DAILY NABILA Administration Sodium Chloride 1,000 mls @ 125 mls/hr 11/04/17 11:37 11/05/17 14:34 Normal Saline - IV Not Given ASDIR NABILA Metronidazole 500 mg in 100 mls @ 100 mls/hr 11/04/17 17:30 11/05/17 17:27 Flagyl 500mg Premixed Ivpb - IVPB 100 mls/hr Q8H-IV NABILA Administration Levofloxacin 500 mg in 100 mls @ 100 mls/hr 11/04/17 19:00 11/05/17 10:11 Levaquin 500 Mg Premixed Ivpb - IVPB 100 mls/hr DAILY NABILA Administration Morphine Sulfate 1 mg 11/04/17 20:30 11/04/17 21:04 Morphine Injection - IVPUSH 1 mg Q4H PRN Administration PAIN LEVEL 6-10 Ondansetron HCl 4 mg 11/04/17 20:12 11/04/17 20:17 Zofran Injection IVPUSH 4 mg Q6H PRN Administration NAUSEA Ranitidine HCl 300 mg 11/05/17 10:00 11/05/17 10:11 Zantac - PO 300 mg DAILY NABILA Administration ASSESSMENT/PLAN: 77 year-old female with a PMH significant for HTN. Admitted for choledocholilithiasis. Choledocholilithiasis --MRCP: choledocholilithiasis in distal CBD; mild proximal CBD and intrahepatic ductal dilitation --spiked fever yesterday; continue levofloxacin (day #2), metronidazole (day #2) --ERCP on Tuesday 11/07 --diet as tolerated; NPO Tuesday midnight --gentle IV fluids --home ASA held --surgery following Hypertension --BP stable --continue enalapril Hypomagnesemia --repleted FEN Fluids: NS@50mL/hr Electrolytes: replete as indicated Nutrition: low fat, low sodium DVT prophylaxis: mechanical only due to upcoming procedures Physical therapy evaluation Dispo: continues to require inpatient care. Full code. Visit type - Emergency Visit Emergency Visit: Yes ED Registration Date: 11/04/17 Care time: The patient presented to the Emergency Department on the above date and was hospitalized for further evaluation of their emergent condition. - New Patient This patient is new to me today: No - Critical Care Critical Care patient: No
[2017-11-05] MEDS ORDERED: FAMOTIDINE 20 MG/50 ML IVPB 20 MG/50 ML MG IVPB ONE (21:49)
[2017-11-05] MEDS ORDERED: SODIUM CHLORIDE 1,000 ML IV SCH (22:35)
[2017-11-06] MEDS: ENALAPRIL MALEATE 10 MG TABLET (FP) PO SCH (09:25)
[2017-11-06] MEDS: RANITIDINE HCL 150 MG TABLET (FP) PO SCH (09:25)
--- NOTE | 2017-11-06 11:34 | PN ---
GI Progress Note Subjective: GI NOte: I came in to introduce myself and obtain consent for ERCP. Evy denies pain or nausea. Tolerated solid breakfast. I have discussed ERCP in detail including informing Evy of the potential for such complications as perforation and hemorrhage and multiorgan failure that can arise as a result of ERCP induced pancreatitis. After I answered her questions she signed an informed consent. Will defer until tomorrow when I have my endoscopy team as she appears stable and free of signs of cholangitis. No labs done today. Will repeat tomorrow. - Objective Vital Signs: Vital Signs Temperature 98 F 11/06/17 08:00 Pulse Rate 67 11/06/17 08:00 Respiratory Rate 18 11/06/17 08:00 Blood Pressure 150/76 11/06/17 08:00 O2 Sat by Pulse Oximetry (%) 94 L 11/05/17 21:00 Laboratory Tests 11/04/17 11/05/17 10:26 07:00 WBC 5.1 D 2.9 L Constitutional: No Distress Eyes: Yes: Conjunctiva Clear ...Auscultate: Yes: Normoactive Bowel Sounds ...Palpate: Yes: Soft, Other (nontender) Labs: CBC, BMP 11/05/17 07:00 11/05/17 07:00 INR, PTT INR 1.07 (0.82-1.09) 11/05/17 07:00 Problem List - Problems (1) Choledocholithiasis Assessment/Plan: Fortunately no signs of cholangitis or biliary pancreatitis. Will do ERCP tomorrow Code(s): K80.50 - CALCULUS OF BILE DUCT W/O CHOLANGITIS OR CHOLECYST W/O OBST
--- NOTE | 2017-11-06 12:05 | PN ---
Physical Exam: SUBJECTIVE: Patient seen and examined at bedside. Feeling better. Voices no complaints. OBJECTIVE: Vital Signs Period Temp Pulse Resp BP Sys/Mayorga Pulse Ox Last 24 Hr 98 F-98.5 F 61-68 18-20 133-153/64-77 94 GENERAL: Awake, alert, and fully oriented, in no acute distress. LUNGS: Breath sounds equal, clear to auscultation bilaterally. No wheezes, and no crackles. No accessory muscle use. HEART: Regular rate and rhythm, normal S1 and S2 ABDOMEN: Soft, nontender, not distended, normoactive bowel sounds, no guarding, no rebound UPPER EXTREMITIES: 2+ pulses, warm, well-perfused. No cyanosis. No clubbing. No peripheral edema. LOWER EXTREMITIES: 2+ pulses, warm, well-perfused. No calf tenderness. No peripheral edema. NEUROLOGICAL: Cranial nerves II-XII intact. Normal speech. SKIN: Warm, dry, normal turgor CBCD WBC 2.9 K/mm3 (4.0-10.0) L 11/05/17 07:00 RBC 3.75 M/mm3 (3.60-5.2) 11/05/17 07:00 Hgb 11.2 GM/dL (10.7-15.3) 11/05/17 07:00 Hct 33.6 % (32.4-45.2) 11/05/17 07:00 MCV 89.5 fl (80-96) 11/05/17 07:00 MCHC 33.3 g/dl (32.0-36.0) 11/05/17 07:00 RDW 13.7 % (11.6-15.6) 11/05/17 07:00 Plt Count 151 K/MM3 (134-434) 11/05/17 07:00 MPV 8.3 fl (7.5-11.1) 11/05/17 07:00 CMP Sodium 141 mmol/L (136-145) 11/05/17 07:00 Potassium 4.0 mmol/L (3.5-5.1) 11/05/17 07:00 Chloride 105 mmol/L (98-107) 11/05/17 07:00 Carbon Dioxide 29 mmol/L (21-32) 11/05/17 07:00 Anion Gap 7 (8-16) L 11/05/17 07:00 BUN 16 mg/dL (7-18) 11/05/17 07:00 Creatinine 0.7 mg/dL (0.55-1.02) 11/05/17 07:00 Creat Clearance w eGFR > 60 (>60) 11/05/17 07:00 Calcium 7.4 mg/dL (8.5-10.1) L 11/05/17 07:00 Total Bilirubin 0.8 mg/dL (0.2-1.0) 11/05/17 07:00 AST 57 U/L (15-37) H 11/05/17 07:00 ALT 47 U/L (12-78) 11/05/17 07:00 Alkaline Phosphatase 116 U/L (45-117) 11/05/17 07:00 Total Protein 5.4 g/dl (6.4-8.2) L 11/05/17 07:00 Albumin 2.8 g/dl (3.4-5.0) L 11/05/17 07:00 Laboratory Results - last 24 hr 11/05/17 11:00 Blood Type A POSITIVE Active Medications Generic Name Dose Route Start Last Admin Trade Name Freq PRN Reason Stop Dose Admin Enalapril Maleate 10 mg 11/04/17 10:00 11/06/17 09:25 Vasotec - PO 10 mg DAILY NABILA Administration Metronidazole 500 mg in 100 mls @ 100 mls/hr 11/04/17 17:30 11/06/17 09:25 Flagyl 500mg Premixed Ivpb - IVPB 100 mls/hr Q8H-IV NABILA Administration Levofloxacin 500 mg in 100 mls @ 100 mls/hr 11/04/17 19:00 11/06/17 09:26 Levaquin 500 Mg Premixed Ivpb - IVPB 100 mls/hr DAILY NABILA Administration Lactated Ringer's 1,000 ml in 1,000 mls @ 100 mls/hr 11/06/17 11:45 Lactated Ringers Solution IV ASDIR NABILA Ondansetron HCl 4 mg 11/04/17 20:12 11/04/17 20:17 Zofran Injection IVPUSH 4 mg Q6H PRN Administration NAUSEA Ranitidine HCl 300 mg 11/05/17 10:00 11/06/17 09:25 Zantac - PO 300 mg DAILY NABILA Administration ASSESSMENT/PLAN 77 year-old female with a PMH significant for HTN. Admitted for choledocholilithiasis. Choledocholilithiasis --MRCP: choledocholilithiasis in distal CBD; mild proximal CBD and intrahepatic ductal dilitation --afebrile; continue levofloxacin (day #3), metronidazole (day #3) --ERCP on Tuesday 11/[address] Lopes --home ASA held --surgery following Hypertension --BP stable --continue enalapril Hypomagnesemia --repleted FEN Fluids: LR@100mL/hr Electrolytes: replete as indicated Nutrition: low fat, low sodium; NPO after midnight DVT prophylaxis: mechanical only due to upcoming procedures; oob; ambulation Physical therapy evaluation Dispo: continues to require inpatient care. Full code. Visit type - Emergency Visit Emergency Visit: Yes ED Registration Date: 11/04/17 Care time: The patient presented to the Emergency Department on the above date and was hospitalized for further evaluation of their emergent condition. - New Patient This patient is new to me today: No - Critical Care Critical Care patient: No
[2017-11-06] MEDS: LACTATED RINGERS SOLUTION 1,000 ML/1,000 ML INFUS.BAG IV SCH (20:12)
[2017-11-07 07:25] LABS: BASO % 0.1 % (0-2.0); EOS % 4.4 % (0-4.5); HEMATOCRIT 34.2 % (32.4-45.2); HEMOGLOBIN 11.6 GM/dL (10.7-15.3); LYMPH % 33.4 % (8-40); MCH 29.9 pg (25.7-33.7); MCHC 33.9 g/dl (32.0-36.0); MEAN PLT VOLUME 7.8 fl (7.5-11.1); MONO % 13.1 % (3.8-10.2); PLATELET COUNT 191 K/MM3 (134-434); RBC 3.88 M/mm3 (3.60-5.2); RDW 13.8 % (11.6-15.6); WHITE BLOOD COUNT 3.2 K/mm3 (4.0-10.0)
[2017-11-07] MEDS ORDERED: PT OWN MED DRAWER 7, Y5N ONE (07:26)
[2017-11-07 07:48] LABS: CHLORIDE 102 mmol/L (98-107); POTASSIUM 4.1 mmol/L (3.5-5.1); SODIUM 141 mmol/L (136-145)
[2017-11-07 07:57] LABS: ALBUMIN 2.9 g/dl (3.4-5.0); ALK PHOS 93 U/L (45-117); AMYLASE 49 U/L (25-115); ANION GAP 8 (8-16); BILIRUBIN,DIRECT 0.2 mg/dL (0.0-0.2); BILIRUBIN,TOTAL 0.5 mg/dL (0.2-1.0); BLOOD UREA NITROGEN 12 mg/dL (7-18); CALCIUM 8.5 mg/dL (8.5-10.1); CO2 31 mmol/L (21-32); CREATININE 0.7 mg/dL (0.55-1.02); GLUCOSE,RANDOM 98 mg/dL (74-106); LIPASE 69 U/L (73-393); SGOT/AST 23 U/L (15-37); SGPT/ALT 30 U/L (12-78); TOT PROT 5.7 g/dl (6.4-8.2)
[2017-11-07] MEDS: ONDANSETRON 4 MG/2 ML VIAL IVPUSH PRN (10:27)
[2017-11-07] MEDS: ENALAPRIL MALEATE 10 MG TABLET (FP) PO SCH (10:27)
[2017-11-07] MEDS: RANITIDINE HCL 150 MG TABLET (FP) PO SCH (10:28)
[2017-11-07] MEDS ORDERED: SUCCINYLCHOLINE CHLORIDE 200 MG/10 ML VIAL ONE (11:30)
[2017-11-07] MEDS ORDERED: PROPOFOL 20 ML ONE (11:30)
[2017-11-07] MEDS ORDERED: DESFLURANE GAS 240 ML BOTTLE IH ONE (11:48)
--- NOTE | 2017-11-07 13:48 | PN ---
Progress Note (short form) - Note Progress Note: GI Procedure NOte: Please see scanned ERCP report. A single small distal CBD stone was removed after sphincterotomy. A short papillary stricture was relieved by the sphincterotomy. Problem List - Problems (1) Choledocholithiasis Code(s): K80.50 - CALCULUS OF BILE DUCT W/O CHOLANGITIS OR CHOLECYST W/O OBST
[2017-11-07] MEDS ORDERED: LACTATED RINGERS SOLUTION 1,000 ML/1,000 ML INFUS.BAG IV SCH ×2 (14:00→22:00)
[2017-11-07] MEDS ORDERED: ACETAMINOPHEN 325 MG TABLET (FP) ONE (14:01)
[2017-11-07] MEDS ORDERED: ONDANSETRON 4 MG/2 ML VIAL ONE (14:11)
[2017-11-07] MEDS ORDERED: METOCLOPRAMIDE HCL INJECTION 10 MG/2 ML VIAL IVPUSH PRN (14:14)
[2017-11-07] MEDS ORDERED: METOCLOPRAMIDE HCL INJECTION 10 MG/2 ML VIAL ONE (14:21)
[2017-11-07] MEDS: LACTATED RINGERS SOLUTION 1,000 ML/1,000 ML INFUS.BAG IV SCH (15:16)
[2017-11-07] MEDS ORDERED: MORPHINE SULFATE 10 MG/1 ML *VIAL IVPUSH PRN (15:31)
--- NOTE | 2017-11-07 18:27 | PN ---
Physical Exam: SUBJECTIVE: Patient seen and examined OBJECTIVE: Vital Signs Period Temp Pulse Resp BP Sys/Mayorga Pulse Ox Last 24 Hr 97.6 F-98.5 F 64-82 12-21 146-183/64-81 94-100 GENERAL: Awake, alert, and fully oriented, in no acute distress. LUNGS: Breath sounds equal, clear to auscultation bilaterally. No wheezes, and no crackles. No accessory muscle use. HEART: Regular rate and rhythm, normal S1 and S2 ABDOMEN: Soft, nontender, not distended, normoactive bowel sounds, no guarding, no rebound UPPER EXTREMITIES: 2+ pulses, warm, well-perfused. No cyanosis. No clubbing. No peripheral edema. LOWER EXTREMITIES: 2+ pulses, warm, well-perfused. No calf tenderness. No peripheral edema. NEUROLOGICAL: Cranial nerves II-XII intact. Normal speech. SKIN: Warm, dry, normal turgor Laboratory Results - last 24 hr 11/07/17 11/07/17 06:30 06:30 WBC 3.2 L RBC 3.88 Hgb 11.6 Hct 34.2 MCV 88.0 MCH 29.9 MCHC 33.9 RDW 13.8 Plt Count 191 D MPV 7.8 Neutrophils % 49.0 Lymphocytes % 33.4 D Monocytes % 13.1 H Eosinophils % 4.4 Basophils % 0.1 Sodium 141 Potassium 4.1 Chloride 102 Carbon Dioxide 31 Anion Gap 8 BUN 12 Creatinine 0.7 Random Glucose 98 Calcium 8.5 Total Bilirubin 0.5 D Direct Bilirubin 0.2 AST 23 ALT 30 Alkaline Phosphatase 93 C-Reactive Protein 0.6 H Total Protein 5.7 L Albumin 2.9 L Total Amylase 49 Lipase 69 L Active Medications Generic Name Dose Route Start Last Admin Trade Name Freq PRN Reason Stop Dose Admin Enalapril Maleate 10 mg 11/04/17 10:00 11/07/17 10:27 Vasotec - PO 10 mg DAILY NABILA Administration Metronidazole 500 mg in 100 mls @ 100 mls/hr 11/04/17 17:30 11/07/17 17:59 Flagyl 500mg Premixed Ivpb - IVPB 100 mls/hr Q8H-IV NABILA Administration Levofloxacin 500 mg in 100 mls @ 100 mls/hr 11/04/17 19:00 11/07/17 10:28 Levaquin 500 Mg Premixed Ivpb - IVPB 100 mls/hr DAILY NABILA Administration Lactated Ringer's 1,000 ml in 1,000 mls @ 100 mls/hr 11/06/17 11:45 11/07/17 15:16 Lactated Ringers Solution IV Not Given ASDIR NABILA Lactated Ringer's 1,000 ml in 1,000 mls @ 150 mls/hr 11/07/17 14:00 11/07/17 15:15 Lactated Ringers Solution IV 11/07/17 22:00 150 mls/hr ASDIR NABILA Administration Lactated Ringer's 1,000 ml in 1,000 mls @ 125 mls/hr 11/07/17 22:00 Lactated Ringers Solution IV 11/08/17 04:00 ASDIR NABILA Lactated Ringer's 1,000 ml in 1,000 mls @ 100 mls/hr 11/08/17 22:00 Lactated Ringers Solution IV ASDIR NABILA Metoclopramide HCl 10 mg 11/07/17 14:14 11/07/17 14:22 Reglan Injection - IVPUSH 10 mg Q8H PRN Administration NAUSEA AND/OR VOMITING Morphine Sulfate 1 mg 11/07/17 15:31 11/07/17 15:54 Morphine Injection - IVPUSH 1 mg Q4H PRN Administration PAIN LEVEL 4 - 6 Ondansetron HCl 4 mg 11/04/17 20:12 11/07/17 10:27 Zofran Injection IVPUSH 4 mg Q6H PRN Administration NAUSEA ASSESSMENT/PLAN: 77 year-old female with a PMH significant for HTN. Admitted for choledocholilithiasis. Choledocholilithiasis --11/04 MRCP: choledocholilithiasis in distal CBD; mild proximal CBD and intrahepatic ductal dilitation --11/07 ERCP: small distal CBD stone removed --continue levofloxacin (day #4), metronidazole (day #4) --home ASA held --lap reddy scheduled for Tuesday Hypertension --BP stable --continue enalapril Hypomagnesemia --repleted FEN Fluids: LR@100mL/hr Electrolytes: replete as indicated Nutrition: low fat, low sodium DVT prophylaxis: mechanical only due to upcoming procedures; oob; ambulation Physical therapy evaluation Dispo: continues to require inpatient care. Full code. Visit type - Emergency Visit Emergency Visit: Yes ED Registration Date: 11/04/17 Care time: The patient presented to the Emergency Department on the above date and was hospitalized for further evaluation of their emergent condition. - New Patient This patient is new to me today: No - Critical Care Critical Care patient: No
--- NOTE | 2017-11-07 19:55 | EKG ---
Test Reason : Blood Pressure : / mmHG Vent. Rate : 071 BPM Atrial Rate : 071 BPM P-R Int : 170 ms QRS Dur : 096 ms QT Int : 416 ms P-R-T Axes : 073 030 061 degrees QTc Int : 452 ms SINUS RHYTHM NONSPECIFIC T WAVE ABNORMALITY POOR R WAVE PROGRESSION ABNORMAL ECG WHEN COMPARED WITH ECG OF 01-MAY-2017 12:43, PREMATURE VENTRICULAR COMPLEXES ARE NO LONGER PRESENT Confirmed by INDRA SARMIENTO, ORIANA ([id number]) on 11/07/2017 7:54:45 PM Referred By: DR KIM Confirmed By:ORIANA BURRELL MD
[2017-11-08] MEDS: LACTATED RINGERS SOLUTION 1,000 ML/1,000 ML INFUS.BAG IV SCH ×3 (01:46→14:15)
--- NOTE | 2017-11-08 06:47 | SPA.PREOP ---
- PRE-OP NOTE Dx: Cholecystitis, Cholelithiasis Planned Procedure: Laparoscopic cholecystectomy, possible open Surgeon: Nilson Martinez Consent: To be obtained after surgeon explains risks, benefits and alternatives. Last Vital Signs Temp Pulse Resp BP Pulse Ox 98.7 F 66 20 142/71 100 11/08/17 02:18 11/08/17 02:18 11/08/17 02:18 11/08/17 02:18 11/07/17 21:00 Blood Type Blood Type A POSITIVE 11/05/17 11:00 CBC, BMP 11/07/17 06:30 11/07/17 06:30 Hepatic Panel Total Bilirubin 0.5 mg/dL (0.2-1.0) D 11/07/17 06:30 Direct Bilirubin 0.2 mg/dL (0.0-0.2) 11/07/17 06:30 AST 23 U/L (15-37) 11/07/17 06:30 ALT 30 U/L (12-78) 11/07/17 06:30 Alkaline Phosphatase 93 U/L (45-117) 11/07/17 06:30 Albumin 2.9 g/dl (3.4-5.0) L 11/07/17 06:30 INR, PTT INR 1.07 (0.82-1.09) 11/05/17 07:00 Cyndi/Lip 11/04/17 11/07/17 06:45 06:30 Total Amylase 49 Lipase 123 69 L - IMAGING Chest X-ray: Report Reviewed, Image Reviewed MRI: Report Reviewed Other: Report Reviewed (ERCP 11/07) - ASSESSMENT/PLAN <José Wynne P - Last Filed: 11/08/17 06:48> - PRE-OP NOTE Dx: Planned Procedure: Surgeon: Consent: Obtained after surgeon explained all risks, benefits and alternatives. Opportunity for questions. Patient had none. Understood and signed without reservation. Last Vital Signs Temp Pulse Resp BP Pulse Ox 98.4 F 69 20 140/73 100 11/08/17 06:53 11/08/17 06:53 11/08/17 06:53 11/08/17 06:53 11/07/17 21:00 Lab Results WBC 4.6 K/mm3 (4.0-10.0) D 11/08/17 06:00 RBC 3.63 M/mm3 (3.60-5.2) 11/08/17 06:00 Hgb 10.9 GM/dL (10.7-15.3) 11/08/17 06:00 Hct 31.7 % (32.4-45.2) L 11/08/17 06:00 MCV 87.2 fl (80-96) 11/08/17 06:00 MCHC 34.4 g/dl (32.0-36.0) 11/08/17 06:00 RDW 13.4 % (11.6-15.6) 11/08/17 06:00 Plt Count 185 K/MM3 (134-434) 11/08/17 06:00 Sodium 141 mmol/L (136-145) 11/08/17 06:00 Potassium 3.5 mmol/L (3.5-5.1) 11/08/17 06:00 Chloride 101 mmol/L (98-107) 11/08/17 06:00 Carbon Dioxide 30 mmol/L (21-32) 11/08/17 06:00 Anion Gap 10 (8-16) 11/08/17 06:00 BUN 9 mg/dL (7-18) 11/08/17 06:00 Creatinine 0.6 mg/dL (0.55-1.02) 11/08/17 06:00 Random Glucose 94 mg/dL (74-106) 11/08/17 06:00 Calcium 8.4 mg/dL (8.5-10.1) L 11/08/17 06:00 Blood Type A POSITIVE 11/05/17 11:00 Antibody Screen Negative 11/05/17 07:00 INR 1.07 (0.82-1.09) 11/05/17 07:00 - ASSESSMENT/PLAN 1. Make NPO after midnight except po meds 2. GI/DVT PPX 3. Medical optimization / clearance <Nilson Martinez - Last Filed: 11/08/17 09:24> Problem List - Problems (1) Choledocholithiasis Assessment/Plan: 1. NPO after midnight except PO meds 2. GI/DVT PPX 3. Medical optimization / clearance Code(s): K80.50 - CALCULUS OF BILE DUCT W/O CHOLANGITIS OR CHOLECYST W/O OBST <José Wynne P - Last Filed: 11/08/17 06:48> Visit type - Case Type Case Type: ED Admission - New patient This patient is new to me today: Yes Date on this admission: 11/08/17 <José Wynne - Last Filed: 11/08/17 06:48>
[2017-11-08 07:54] LABS: ALBUMIN 2.8 g/dl (3.4-5.0); BILIRUBIN,DIRECT 0.2 mg/dL (0.0-0.2); BILIRUBIN,TOTAL 0.5 mg/dL (0.2-1.0); TOT PROT 5.2 g/dl (6.4-8.2)
[2017-11-08 07:55] LABS: CHLORIDE 101 mmol/L (98-107); POTASSIUM 3.5 mmol/L (3.5-5.1); SODIUM 141 mmol/L (136-145)
[2017-11-08 08:02] LABS: BASO % 0.2 % (0-2.0); EOS % 1.9 % (0-4.5); HEMATOCRIT 31.7 % (32.4-45.2); HEMOGLOBIN 10.9 GM/dL (10.7-15.3); LYMPH % 28.7 % (8-40); MCHC 34.4 g/dl (32.0-36.0); MEAN CELL VOLUME 87.2 fl (80-96); MEAN PLT VOLUME 7.6 fl (7.5-11.1); MONO % 11.3 % (3.8-10.2); NEUT % 57.9 % (42.8-82.8); PLATELET COUNT 185 K/MM3 (134-434); RBC 3.63 M/mm3 (3.60-5.2); RDW 13.4 % (11.6-15.6); WHITE BLOOD COUNT 4.6 K/mm3 (4.0-10.0)
[2017-11-08 08:03] LABS: ALBUMIN 2.8 g/dl (3.4-5.0); ALK PHOS 84 U/L (45-117); AMYLASE 58 U/L (25-115); ANION GAP 10 (8-16); BILIRUBIN,TOTAL 0.5 mg/dL (0.2-1.0); BLOOD UREA NITROGEN 9 mg/dL (7-18); CALCIUM 8.4 mg/dL (8.5-10.1); CO2 30 mmol/L (21-32); CREATININE 0.6 mg/dL (0.55-1.02); GLUCOSE,RANDOM 94 mg/dL (74-106); LIPASE 54 U/L (73-393); MAGNESIUM 1.4 mg/dL (1.8-2.4); SGOT/AST 32 U/L (15-37); SGPT/ALT 27 U/L (12-78); TOT PROT 5.3 g/dl (6.4-8.2)
[2017-11-08] MEDS ORDERED: MAGNESIUM SULF 50% (8.12 MEQ/2 ML-1 GM VIAL) IVPB ONE ×2 (10:00→12:45)
[2017-11-08] MEDS: ENALAPRIL MALEATE 10 MG TABLET (FP) PO SCH (10:08)
--- NOTE | 2017-11-08 10:33 | PN ---
Progress Note (short form) - Note Progress Note: Attending Surgeon Patient seen and evaluated; for lap reddy possible open 11/09/17; r/b/t/a's d/w her and informed consent obtained. Nilson Martinez MD FACS
--- NOTE | 2017-11-08 20:30 | PN ---
Physical Exam: SUBJECTIVE: Patient seen and examined sitting up in bed eating soup. Cousin present. Feels well, no complaints. OBJECTIVE: Vital Signs Period Temp Pulse Resp BP Sys/Mayorga Pulse Ox Last 24 Hr 97.9 F-99.8 F 64-83 16-20 140-178/66-102 96-100 GENERAL: Awake, alert, and fully oriented, in no acute distress. LUNGS: Breath sounds equal, clear to auscultation bilaterally. No wheezes, and no crackles. No accessory muscle use. HEART: Regular rate and rhythm, normal S1 and S2 ABDOMEN: Soft, nontender, not distended, normoactive bowel sounds, no guarding, no rebound UPPER EXTREMITIES: 2+ pulses, warm, well-perfused. No cyanosis. No clubbing. No peripheral edema. LOWER EXTREMITIES: 2+ pulses, warm, well-perfused. No calf tenderness. No peripheral edema. NEUROLOGICAL: Cranial nerves II-XII intact. Normal speech. SKIN: Warm, dry, normal turgor Laboratory Results - last 24 hr 11/08/17 11/08/17 11/08/17 06:00 06:00 06:00 WBC 4.6 D RBC 3.63 Hgb 10.9 Hct 31.7 L MCV 87.2 MCH 30.0 MCHC 34.4 RDW 13.4 Plt Count 185 MPV 7.6 Neutrophils % 57.9 Lymphocytes % 28.7 Monocytes % 11.3 H Eosinophils % 1.9 Basophils % 0.2 Sodium 141 Potassium 3.5 Chloride 101 Carbon Dioxide 30 Anion Gap 10 BUN 9 Creatinine 0.6 Creat Clearance w eGFR > 60 Random Glucose 94 Calcium 8.4 L Magnesium 1.4 L Total Bilirubin 0.5 0.5 Direct Bilirubin 0.2 AST 32 31 ALT 27 27 Alkaline Phosphatase 84 83 C-Reactive Protein 0.4 H Total Protein 5.3 L 5.2 L Albumin 2.8 L 2.8 L Total Amylase 58 Lipase 54 L Active Medications Generic Name Dose Route Start Last Admin Trade Name Freq PRN Reason Stop Dose Admin Enalapril Maleate 10 mg 11/04/17 10:00 11/08/17 10:08 Vasotec - PO 10 mg DAILY NABILA Administration Metronidazole 500 mg in 100 mls @ 100 mls/hr 11/04/17 17:30 11/08/17 17:09 Flagyl 500mg Premixed Ivpb - IVPB 100 mls/hr Q8H-IV NABILA Administration Levofloxacin 500 mg in 100 mls @ 100 mls/hr 11/04/17 19:00 11/08/17 10:08 Levaquin 500 Mg Premixed Ivpb - IVPB 100 mls/hr DAILY NABILA Administration Lactated Ringer's 1,000 ml in 1,000 mls @ 100 mls/hr 11/06/17 11:45 11/08/17 14:15 Lactated Ringers Solution IV Not Given ASDIR NABILA Lactated Ringer's 1,000 ml in 1,000 mls @ 100 mls/hr 11/08/17 22:00 Lactated Ringers Solution IV ASDIR NABILA Metoclopramide HCl 10 mg 11/07/17 14:14 11/07/17 14:22 Reglan Injection - IVPUSH 10 mg Q8H PRN Administration NAUSEA AND/OR VOMITING Morphine Sulfate 1 mg 11/07/17 15:31 11/07/17 15:54 Morphine Injection - IVPUSH 1 mg Q4H PRN Administration PAIN LEVEL 4 - 6 Ondansetron HCl 4 mg 11/04/17 20:12 11/07/17 10:27 Zofran Injection IVPUSH 4 mg Q6H PRN Administration NAUSEA ASSESSMENT/PLAN 77 year-old female with a PMH significant for HTN. Admitted for choledocholilithiasis. Choledocholilithiasis --11/04 MRCP: choledocholilithiasis in distal CBD; mild proximal CBD and intrahepatic ductal dilitation --11/07 ERCP: small distal CBD stone removed --continue levofloxacin (day #5), metronidazole (day #5) --home ASA held --lap reddy scheduled for Tuesday Hypertension --BP stable --continue enalapril Hypomagnesemia --repleted FEN Fluids: LR@100mL/hr Electrolytes: replete as indicated Nutrition: low fat, low sodium DVT prophylaxis: mechanical only due to upcoming procedures; oob; ambulation Physical therapy evaluation Dispo: continues to require inpatient care. Full code. Visit type - Emergency Visit Emergency Visit: Yes ED Registration Date: 11/04/17 Care time: The patient presented to the Emergency Department on the above date and was hospitalized for further evaluation of their emergent condition. - New Patient This patient is new to me today: No - Critical Care Critical Care patient: No
--- NOTE | 2017-11-08 20:49 | PN ---
GI Progress Note Subjective: No abdominal pain No fevers States feeling well S/P ERCP with CBD stone extraction yesterday - Objective Vital Signs: Vital Signs Temperature 97.9 F 11/08/17 17:05 Pulse Rate 80 11/08/17 17:05 Respiratory Rate 18 11/08/17 17:05 Blood Pressure 178/84 11/08/17 17:05 O2 Sat by Pulse Oximetry (%) 96 11/08/17 09:00 Constitutional: Calm Eyes: Yes: Sclera Icterus Cardiovascular: Yes: Regular Rate and Rhythm Respiratory: Yes: CTA Bilaterally Gastrointestinal Inspection: No: Distention ...Auscultate: Yes: Normoactive Bowel Sounds ...Palpate: No: Tenderness ...Percussion: No: Tympanitic Edema: No (No LE edema) Neurological: Yes: Alert, Oriented Labs: CBC, BMP 11/08/17 06:00 11/08/17 06:00 INR, PTT INR 1.07 (0.82-1.09) 11/05/17 07:00 Hepatic Panel Total Bilirubin 0.5 mg/dL (0.2-1.0) 11/08/17 06:00 Direct Bilirubin 0.2 mg/dL (0.0-0.2) 11/08/17 06:00 AST 32 U/L (15-37) 11/08/17 06:00 ALT 27 U/L (12-78) 11/08/17 06:00 Alkaline Phosphatase 84 U/L (45-117) 11/08/17 06:00 Albumin 2.8 g/dl (3.4-5.0) L 11/08/17 06:00 Problem List - Problems (1) Choledocholithiasis Assessment/Plan: S/P ERCP yesterday without evidence of post ERCP pancreatitis For Cholecystectomy 11/09 Code(s): K80.50 - CALCULUS OF BILE DUCT W/O CHOLANGITIS OR CHOLECYST W/O OBST
[2017-11-08] MEDS ORDERED: LACTATED RINGERS SOLUTION 1,000 ML/1,000 ML INFUS.BAG IV SCH (22:00)
[2017-11-09] MEDS: LACTATED RINGERS SOLUTION 1,000 ML/1,000 ML INFUS.BAG IV SCH ×2 (01:08→15:56)
--- NOTE | 2017-11-09 09:32 | PN ---
Physical Exam: SUBJECTIVE: Patient seen and examined. She c/o gas pressure in her chest, non reproducible, no heart pain, no sob, no epigastric pain. OBJECTIVE: Vital Signs Period Temp Pulse Resp BP Sys/Mayorga Pulse Ox Last 24 Hr 97.9 F-99.8 F 64-83 16-20 136-178/66-102 95 PE Neuro: alert, awake, cn 2-12intact Pulm: CTAB CV: s1 s2 rrr no mrg Abd: mild RUQ tenderness to palpation, abd soft + bs Ext: no le edema, warm Active Medications Generic Name Dose Route Start Last Admin Trade Name Freq PRN Reason Stop Dose Admin Enalapril Maleate 10 mg 11/04/17 10:00 11/08/17 10:08 Vasotec - PO 10 mg DAILY NABILA Administration Metronidazole 500 mg in 100 mls @ 100 mls/hr 11/04/17 17:30 11/09/17 01:11 Flagyl 500mg Premixed Ivpb - IVPB 100 mls/hr Q8H-IV NABILA Administration Levofloxacin 500 mg in 100 mls @ 100 mls/hr 11/04/17 19:00 11/08/17 10:08 Levaquin 500 Mg Premixed Ivpb - IVPB 100 mls/hr DAILY NABILA Administration Lactated Ringer's 1,000 ml in 1,000 mls @ 100 mls/hr 11/06/17 11:45 11/09/17 01:08 Lactated Ringers Solution IV 100 mls/hr ASDIR NABILA Administration Lactated Ringer's 1,000 ml in 1,000 mls @ 100 mls/hr 11/08/17 22:00 11/09/17 01:16 Lactated Ringers Solution IV Not Given ASDIR NABILA Metoclopramide HCl 10 mg 11/07/17 14:14 11/07/17 14:22 Reglan Injection - IVPUSH 10 mg Q8H PRN Administration NAUSEA AND/OR VOMITING Morphine Sulfate 1 mg 11/07/17 15:31 11/07/17 15:54 Morphine Injection - IVPUSH 1 mg Q4H PRN Administration PAIN LEVEL 4 - 6 Ondansetron HCl 4 mg 11/04/17 20:12 11/07/17 10:27 Zofran Injection IVPUSH 4 mg Q6H PRN Administration NAUSEA Assessment: 77 year old female with a PMH significant for HTN. Admitted for choledocholilithiasis. Plan: 1. Choledocholilithiasis - For Cholecystectomy today - 11/07 ERCP small distal CBD stone removed - Continue LR per GI - Continue levaquin (day 6), flagyl (day 6) - OOB to ambulation for gas pressure, monitor, if worsens will work up for ACS, however appear more GI/post procedure in nature 2. HTN - Continue enalapril 10mg daily 3. Prophylaxis - SCDs at this time due to surgery - PT daily Visit type - Emergency Visit Emergency Visit: Yes ED Registration Date: 11/04/17 Care time: The patient presented to the Emergency Department on the above date and was hospitalized for further evaluation of their emergent condition. - New Patient This patient is new to me today: Yes Date on this admission: 11/09/17 - Critical Care Critical Care patient: No
[2017-11-09] MEDS: ENALAPRIL MALEATE 10 MG TABLET (FP) PO SCH (09:35)
[2017-11-09] MEDS ORDERED: BUPIVACAINE HCL/PF 0.5% (5MG/ML) 10 ML VIAL ONE (12:06)
[2017-11-09] MEDS ORDERED: fentaNYL CITRATE 250 MCG/5 ML VIAL ONE ×2 (12:52→13:28)
[2017-11-09] MEDS ORDERED: KETOROLAC TROMETHAMINE 30 MG/1 ML VIAL ONE (12:52)
[2017-11-09] MEDS ORDERED: DEXAMETHASONE SOD PHOSPHATE 4 MG/1 ML VIAL ONE (12:52)
[2017-11-09] MEDS ORDERED: ROCURONIUM BROMIDE 50 MG/5 ML VIAL ONE (12:53)
[2017-11-09] MEDS ORDERED: LABETALOL HCL 5 MG/1 ML (100MG/20 ML VIAL) ONE (13:28)
[2017-11-09] MEDS ORDERED: BUPIVACAINE HCL/PF 0.5% (5MG/ML) 10 ML VIAL IJ ONE ×2 (14:03)
[2017-11-09] MEDS ORDERED: NEOSTIGMINE METHYLSULFATE 0.5 MG/ML - 10 ML MDV ONE (14:05)
[2017-11-09] MEDS ORDERED: GLYCOPYRROLATE 0.2 MG/1 ML VIAL ONE ×2 (14:05)
[2017-11-09] MEDS ORDERED: PROMETHAZINE HCL 25 MG/1 ML VIAL IVPB PRN ×2 (14:23→14:51)
[2017-11-09] MEDS ORDERED: oxyCODONE HCL 5 MG TABLET PO PRN ×2 (14:23→14:51)
[2017-11-09] MEDS ORDERED: ONDANSETRON 4 MG/2 ML VIAL IVPUSH PRN ×2 (14:23→14:51)
--- NOTE | 2017-11-09 14:23 | OP ---
Operative Note - Note: Operative Date: 11/09/17 Pre-Operative Diagnosis: Choledochlithiasis, cholecystitis Operation: Lap reddy Post-Operative Diagnosis: Same as Pre-op Surgeon: Nilson Martinez Chain Maker Loom Control: José Wynne Anesthesiologist/KARATE TEACHER: Torey Burns Anesthesia: General Specimens Removed: Gall bladder Estimated Blood Loss (mls): 25 Fluid Volume Replaced (mls): 1,000 Operative Report Dictated: Yes
--- NOTE | 2017-11-09 14:24 | SURG ---
Surgery [facility] Teacher Note [facility] Teacher: José Wynne PA-C Date of Service: 11/09/17 Diagnosis: Choledochlithiasis, cholecystitis Procedure: Laparoscopic cholecystectomy I was present for the entirety of the operative procedure. For further detail, please refer to operative report. Visit type - Case Type Case Type: ED Admission - Emergency Emergency Visit: Yes ED Registration Date: 11/04/17 Care time: The patient presented to the Emergency Department on the above date and was hospitalized for further evaluation of their emergent condition. - New patient This patient is new to me today: Yes Date on this admission: 11/09/17
[2017-11-09] MEDS ORDERED: LACTATED RINGERS SOLUTION 1,000 ML IV SCH ×2 (14:30→14:51)
[2017-11-09] MEDS ORDERED: MORPHINE SULFATE 10 MG/1 ML *VIAL IVPUSH PRN (14:51)
[2017-11-09] MEDS ORDERED: METOCLOPRAMIDE HCL INJECTION 10 MG/2 ML VIAL IVPUSH PRN (14:51)
[2017-11-10 06:20] VITALS: TEMP 98.1
[2017-11-10 08:10] LABS: BASO % 0.1 % (0-2.0); EOS % 1.1 % (0-4.5); HEMOGLOBIN 11.1 GM/dL (10.7-15.3); LYMPH % 26.3 % (8-40); MCH 29.6 pg (25.7-33.7); MCHC 33.7 g/dl (32.0-36.0); MEAN CELL VOLUME 87.9 fl (80-96); MEAN PLT VOLUME 7.8 fl (7.5-11.1); MONO % 11.6 % (3.8-10.2); NEUT % 60.9 % (42.8-82.8); PLATELET COUNT 211 K/MM3 (134-434); RBC 3.75 M/mm3 (3.60-5.2); RDW 13.6 % (11.6-15.6); WHITE BLOOD COUNT 5.8 K/mm3 (4.0-10.0)
[2017-11-10 08:34] LABS: ANION GAP 13 (8-16); BLOOD UREA NITROGEN 13 mg/dL (7-18); CALCIUM 8.5 mg/dL (8.5-10.1); CHLORIDE 99 mmol/L (98-107); CO2 28 mmol/L (21-32); GLUCOSE,RANDOM 89 mg/dL (74-106); POTASSIUM 3.9 mmol/L (3.5-5.1); SODIUM 140 mmol/L (136-145)
[2017-11-10 08:37] LABS: ALK PHOS 77 U/L (45-117); BILIRUBIN,TOTAL 0.7 mg/dL (0.2-1.0); CREATININE 0.8 mg/dL (0.55-1.02); MAGNESIUM 1.7 mg/dL (1.8-2.4); SGOT/AST 57 U/L (15-37); SGPT/ALT 49 U/L (12-78); TOT PROT 5.7 g/dl (6.4-8.2)
[2017-11-10 08:41] LABS: BILIRUBIN,DIRECT 0.2 mg/dL (0.0-0.2); BILIRUBIN,TOTAL 0.8 mg/dL (0.2-1.0); TOT PROT 5.7 g/dl (6.4-8.2)
--- NOTE | 2017-11-10 09:43 | PN ---
Progress Note (short form) - Note Progress Note: Anesthesia Pt seen and examined S:alert and awake O: Vital Signs Temperature 98.1 F 11/10/17 06:00 Pulse Rate 65 11/10/17 06:00 Respiratory Rate 20 11/10/17 06:00 Blood Pressure 154/76 11/10/17 06:00 O2 Sat by Pulse Oximetry (%) 97 11/09/17 21:00 CBC, BMP 11/10/17 06:30 11/10/17 06:30 A/P: Current Active Problems Choledocholithiasis (Acute) Cholelithiasis (Acute) Dehydration (Acute) Nausea & vomiting (Acute) s/p lap cholecystectomy Doing well post op Continue current care Torey Burns MD
[2017-11-10] MEDS ORDERED: ENALAPRIL MALEATE 10 MG TABLET (FP) PO SCH (10:00)
--- NOTE | 2017-11-10 13:12 | PN ---
Progress Note (short form) - Note Progress Note: Attending Surgeon POD #1 s/p lap reddy No c/o; tolerating diet VSS AF abdomen- soft; flat and non tender; port sites c/d/i/ labs noted IMP: doing well PLAN: May be d/c'ed home to office f/u 7-10 days post op; instructed on wound care/showering. Nilson Martinez MD FACS
[2017-11-10 14:41] VITALS: BP 152/72; PULSE 69
--- NOTE | 2017-11-10 15:44 | DS ---
Physical Exam: SUBJECTIVE: Patient seen and examined. She feels well, no abd pain, nausea, vomiting. OBJECTIVE: Vital Signs Period Temp Pulse Resp BP Sys/Mayorga Pulse Ox Last 24 Hr 98.1 F-98.8 F 65-90 18-20 125-178/62-88 97-99 PE Neuro: alert, awake, cn 2-12intact Pulm: CTAB CV: s1 s2 rrr no mrg Abd: abdominal port incision cdi Ext: no le edema, warm Laboratory Results - last 24 hr 11/10/17 11/10/17 11/10/17 06:30 06:30 06:30 WBC 5.8 RBC 3.75 Hgb 11.1 Hct 33.0 MCV 87.9 MCH 29.6 MCHC 33.7 RDW 13.6 Plt Count 211 MPV 7.8 Neutrophils % 60.9 Lymphocytes % 26.3 Monocytes % 11.6 H Eosinophils % 1.1 Basophils % 0.1 Sodium 140 Potassium 3.9 Chloride 99 Carbon Dioxide 28 Anion Gap 13 BUN 13 Creatinine 0.8 Creat Clearance w eGFR > 60 Random Glucose 89 Calcium 8.5 Magnesium 1.7 L Total Bilirubin 0.7 D 0.8 Direct Bilirubin 0.2 AST 57 H 57 H ALT 49 48 Alkaline Phosphatase 77 75 Total Protein 5.7 L 5.7 L Albumin 3.0 L 3.0 L HOSPITAL COURSE: Date of Admission:11/04/17 Date of Discharge: 11/10/17 Minutes to complete discharge: 37 Discharge Summary Reason For Visit: NAUSEA AND VOMITING/DEHYDRATION CHOLELITHIASIS Hospital Course: Initial Hospital Course: Briefly, this 77 year old female with a PMH significant for HTN, presented to the [facility] ED with acute onset of nausea, vomiting, abdominal pain, and a burning sensation radiating up to her midchest, after being treated and discharged to home, she was told to return for elevated lipase. Imaging: - CT scan revealed a large gallstone without evidence of cholecystitis - MRCP revealed a mildly dilated CBD of 8mm, dilated intrahepatics and small filling defect in the distal duct Subsequent Hospital Course/Progress Note/DC summary: Assessment: 77 year old female with a PMH significant for HTN, transferred from [facility] for choledocholilithiasis. Plan: 1. Choledocholilithiasis - Cholecystectomy 11/09 - 2/19 ERCP small distal CBD stone removed - s/p levaquin (day 6), flagyl (day 5) 2. HTN - Enalapril 10mg daily Dispo: - Home with surgery follow up Condition: Stable - Instructions Diet, Activity, Other Instructions: Please return to the ED for any new, persistent or worsening symptoms. Follow up with your PCP in 1 week Resume home medications as directed Dr. Martinez Discharge Instructions Dear KAREEN JUÁREZ, Post Operative Instructions Physical activity Resume your normal everyday activity as tolerated no heavy lifting or exercise until seen by your surgeon. You may walk unlimited amounts of and climb stairs. You may resume driving the car when you feel safe and comfortable behind the wheel. Wound care If you have a bandage, leave it on, and keep dry for 48 - 72 hours. After that time discard the outer bandage. If there are tapes on the skin under the outer bandage, leave them in place. They will peel off in the next 7 to 10 days. Do Not peel them off. You may shower 2 days after surgery. If there are tapes present on the skin, they can get wet. Diet There are no dietary restrictions. Eat healthy, high-fiber foods. Drink 6 to 8 glasses of liquid each day. This will assist in keeping your bowels are regular. Pain management You may take Tylenol or acetaminophen or Ibuprofen (for example, Motrin, Advil etc.) Any pain prescription medication ordered should be taken as prescribed for moderate to severe pain. Call Dr. Martinez for any of the following: Severe pain not relieved by medication Fever of 101 or higher Excessive bleeding or drainage on dressing Inability to urinate Call the office at [phone] for a post operative appointment in 7 - 10 days. Referrals: Nilson Martinez MD [Staff Physician] - Maurice Heath MD [Primary Care Provider] - Disposition: HOME - Home Medications Comprehensive Discharge Medication List: Ambulatory Orders Aspirin [ASA -] 81 mg PO DAILY #0 tab.chew 05/30/14 Famotidine [Pepcid] 40 mg PO DAILY 05/01/17 Ondansetron [Zofran Odt -] 4 mg SL TID #14 od.tablet 11/03/17 This patient is new to me today: No Emergency Visit: Yes ED Registration Date: 11/04/17 Care time: The patient presented to the Emergency Department on the above date and was hospitalized for further evaluation of their emergent condition. Critical Care patient: No - Discharge Referral Referred to [facility] Med P.C.: No Physician Referral: Maurice Heath MD (Int Med)
--- NOTE | 2017-11-11 13:30 | PATH ---
Surgical Pathology Report Patient Name: KAREEN JUÁREZ [facility]. Rec. #: [id number] /Age/Gender: 1940 (Age: 77) / F Account: [id number] Location: [facility] MED/SURG Taken: 11/09/2017 Received: 11/10/2017 Reported: 11/11/2017 Physicians: MD Harley Hernandez M.D. Specimen(s) Received GALLBLADDER Clinical History Cholecystitis, choledocholithiasis Final Diagnosis GALLBLADDER, LAPAROSCOPIC CHOLECYSTECTOMY: CHRONIC CHOLECYSTITIS WITH CHOLELITHIASIS. Electronically Signed Palak Kruse M.D. Gross Description Received in formalin, labeled "gallbladder," is a 5.8 x 3.0 x 2.7 cm. gallbladder with a 0.2 cm. in length portion of cystic duct attached. The outer surface is mary-pink and varies from smooth to shaggy. The lumen contains a 4.7 cm in greatest dimension brown, ovoid cholelith. There is no bile present within the lumen. The mucosa is eroded. The wall of the gallbladder is focally calcified and averages 0.1 cm. in thickness. Upset Operator sections are submitted in one cassette, following decalcification. 11/10/201711/10/2017
== END 2017-11-10 15:21 | disposition home or self-care (01) | DRG 419 ==
LOC: FER 20:15 → FM/S 11-04 07:18 → OBSVTOIN 11-04 07:18 → J8W 11-04 22:00
PROVIDERS: ADMIT Internal Medicine; ATTEND Nurse Practitioner Acute Care
PROC: 0FT44ZZ Resection of Gallbladder, Percutaneous Endoscopic Approach (ICD-10-PCS; 2017-11-07)
PROC: 0F778ZZ Dilation of Common Hepatic Duct, Via Natural or Artificial Opening Endoscopic (ICD-10-PCS; 2017-11-07)
PROC: 0FC98ZZ Extirpation of Matter from Common Bile Duct, Via Natural or Artificial Opening Endoscopic (ICD-10-PCS; principal; 2017-11-07 11:15)
DX: K80.19 Calculus of gallbladder with other cholecystitis with obstruction (principal); E83.42 Hypomagnesemia; I10 Essential (primary) hypertension; E86.0 Dehydration; R11.2 Nausea with vomiting, unspecified
CPT/HCPCS: 36415; 71045-TC-FY; 74177-TC; 74181-TC; 74330-TC; 76705-TC; 80048; 80053; 80076; 81003; 81015; 82150; 82550; 83690; 83735; 84100; 84484; 85025; 85610; 85730; 86140; 86850; 86900; 86901; 87040; 88304-TC; 93005; 93010; 94760; 97116-GP; 97161-GP; 99283-25; J7030

== ENCOUNTER 2019-03-11 21:07 | Emergency (ER) | payer OTHER | END 2019-03-12 00:50 | disposition home or self-care (01) | LOC: FER 21:07 ==

== ENCOUNTER 2021-08-16 09:54 | Emergency (ER) | payer OTHER ==
[2021-08-16 10:06] VITALS: TEMP 97.9; BMI 25.4
[2021-08-16 11:03] LABS: EPITHELIAL CELLS FEW /hpf
[2021-08-16 11:49] LABS: MEAN CELL VOLUME 90.2 fl (80-96); MEAN PLT VOLUME 7.9 fl (7.5-11.1)
[2021-08-16 11:50] LABS: HEMOGLOBIN 12.2 GM/dl (10.7-15.3)
[2021-08-16 11:53] LABS: BASO % 4.2 % (0-2.0); EOS % 1.3 % (0-4.5); LYMPH % 25.6 % (8-40); MCH 30.6 pg (25.7-33.7); MCHC 33.9 g/dl (32.0-36.0); MONO % 7.7 % (3.8-10.2); NEUT % 61.2 % (42.8-82.8); PLATELET COUNT 226 10^3/uL (134-434); RBC 3.99 M/mm3 (3.60-5.2); RDW 12.8 % (11.6-15.6); WHITE BLOOD COUNT 3.8 K/mm3 (4.0-10.8)
[2021-08-16 11:55] LABS: ALBUMIN 3.9 g/dl (3.4-5.0); BILIRUBIN,TOTAL 0.7 mg/dl (0.2-1); CALCIUM 9.5 mg/dl (8.5-10); TOT PROT 6.8 g/dl (6.4-8.2)
[2021-08-16] MEDS ORDERED: SODIUM CHLORIDE 500 ML IV STA (12:10)
[2021-08-16 13:55] VITALS: BP 191/82; PULSE 82
== END 2021-08-16 14:19 | disposition home or self-care (01) ==
LOC: FER 09:54
PROC: 3E0337Z Introduction of Electrolytic and Water Balance Substance into Peripheral Vein, Percutaneous Approach (ICD-10-PCS; principal; 2021-08-16)
DX: N30.00 Acute cystitis without hematuria (principal); K46.9 Unspecified abdominal hernia without obstruction or gangrene
CPT/HCPCS: 36415; 74177-TC; 80053; 81003; 81015; 85025; 87086; 96360; 99284-25; Q9967

== ENCOUNTER 2023-04-22 18:48 | Emergency (ER) | payer OTHER ==
[2023-04-22] MEDS ORDERED: ONDANSETRON 4 MG/2 ML VIAL IVPUSH ONE (19:44)
[2023-04-22] MEDS ORDERED: MECLIZINE HCL 25 MG TABLET (FP) PO ONE (19:45)
[2023-04-22] MEDS ORDERED: ONDANSETRON 4 MG/2 ML VIAL ONE (19:48)
[2023-04-22] MEDS ORDERED: MECLIZINE HCL 25 MG TABLET (FP) ONE (19:48)
[2023-04-22] MEDS ORDERED: cloNIDine HCL 0.1 MG TABLET PO ONE (19:49)
[2023-04-22] MEDS ORDERED: cloNIDine HCL 0.1 MG TABLET ONE (20:09)
[2023-04-22 20:15] LABS: HEMATOCRIT 38.5 % (32.4-45.2); HEMOGLOBIN 13.1 G/dL (10.7-15.3); MCH 30.9 pg (25.7-33.7); MEAN PLT VOLUME 7.3 fl (7.5-11.1); PLATELET COUNT 199.6 10^3/uL (134-434); RBC 4.23 10^6/uL (3.60-5.2); RDW 14.7 % (11.6-15.6); WHITE BLOOD COUNT 4.3 10^3/uL (4.0-10.8)
[2023-04-22 20:29] LABS: ALBUMIN 4.4 g/dl (3.4-5.0); BILIRUBIN,TOTAL 0.9 mg/dl (0.2-1); BLOOD UREA NITROGEN 22.3 mg/dl (7-18); CALCIUM 9.3 mg/dl (8.5-10.1); CREATININE 1.1 mg/dl (0.6-1.3); POTASSIUM 4.8 mmol/L (3.5-5.1); SGOT/AST 13.1 U/L (15-37); TOT PROT 6.9 g/dl (6.4-8.2)
[2023-04-22] MEDS ORDERED: ASPIRIN 81 MG CHEWABLE TABLETS PO ONE (21:14)
[2023-04-22] MEDS ORDERED: ASPIRIN 81 MG CHEWABLE TABLETS ONE (21:40)
[2023-04-22] MEDS ORDERED: DOCUSATE SODIUM 100 MG CAPSULE (FP) PO PRN (22:58)
[2023-04-22] MEDS ORDERED: ONDANSETRON 4 MG/2 ML VIAL IVPUSH PRN (22:58)
[2023-04-22] MEDS ORDERED: ACETAMINOPHEN 325 MG TABLET (FP) PO PRN (22:58)
[2023-04-22] MEDS ORDERED: SODIUM CHLORIDE 1,000 ML IV SCH (23:00)
[2023-04-23 05:22] VITALS: BMI 23.3
[2023-04-23] MEDS ORDERED: MECLIZINE HCL 25 MG TABLET (FP) PO PRN (08:33)
[2023-04-23 08:47] LABS: INR 1.05 (0.83-1.09); PROTHROMBIN TIME (PATIENT) 12.2 SEC (9.7-13.0)
[2023-04-23 08:49] LABS: ACTIVATED PTT 29.2 SECONDS (25.2-36.5)
[2023-04-23 08:57] LABS: CALCIUM 9.3 mg/dl (8.5-10.1); MAGNESIUM 1.9 mg/dL (1.8-2.4); PHOSPHOROUS 4.24 (2.5-4.9); POTASSIUM 4.9 mmol/L (3.5-5.1)
[2023-04-23 09:08] LABS: HEMATOCRIT 35.5 % (32.4-45.2); MCH 30.8 pg (25.7-33.7); MCHC 33.9 g/dl (32.0-36.0); MEAN CELL VOLUME 90.9 fl (80-96); MEAN PLT VOLUME 7.9 fl (7.5-11.1); PLATELET COUNT 208.5 10^3/uL (134-434); RDW 14.6 % (11.6-15.6); WHITE BLOOD COUNT 3.5 10^3/uL (4.0-10.8)
[2023-04-23] MEDS ORDERED: PATIENT'S OWN MEDICATION (NON-FORMULARY) (Famotidine [Pepcid] 40 MG Tablet) PO SCH (10:00)
[2023-04-23] MEDS: ENOXAPARIN NA (PORCINE) 40 MG/0.4 ML DISP.SYRIN SQ SCH (10:31)
[2023-04-23] MEDS: ASPIRIN COATED 81 MG TABLET.EC PO SCH (10:31)
[2023-04-23] MEDS: ENALAPRIL MALEATE 10 MG TABLET PO SCH (10:32)
[2023-04-24] MEDS: ENOXAPARIN NA (PORCINE) 40 MG/0.4 ML DISP.SYRIN SQ SCH (10:53)
[2023-04-24] MEDS: ENALAPRIL MALEATE 10 MG TABLET PO SCH (10:53)
[2023-04-24] MEDS: ASPIRIN COATED 81 MG TABLET.EC PO SCH (10:53)
[2023-04-24] MEDS: FAMOTIDINE 20 MG TABLET PO SCH (10:53)
[2023-04-25 07:43] LABS: HEMATOCRIT 36.9 % (32.4-45.2); HEMOGLOBIN 12.6 G/dL (10.7-15.3); MCHC 34.2 g/dl (32.0-36.0); MEAN CELL VOLUME 90.7 fl (80-96); MEAN PLT VOLUME 7.3 fl (7.5-11.1); RBC 4.07 10^6/uL (3.60-5.2); RDW 14.4 % (11.6-15.6); WHITE BLOOD COUNT 3.6 10^3/uL (4.0-10.8)
[2023-04-25 09:10] LABS: ALBUMIN 4.1 g/dl (3.4-5.0); BILIRUBIN,TOTAL 0.9 mg/dl (0.2-1); BLOOD UREA NITROGEN 20.7 mg/dl (7-18); CALCIUM 9.2 mg/dl (8.5-10.1); CREATININE 1.1 mg/dl (0.6-1.3); POTASSIUM 4.2 mmol/L (3.5-5.1); SGPT/ALT 7.8 U/L (7-52)
[2023-04-25] MEDS: ASPIRIN COATED 81 MG TABLET.EC PO SCH (09:24)
[2023-04-25] MEDS: ENOXAPARIN NA (PORCINE) 40 MG/0.4 ML DISP.SYRIN SQ SCH (09:24)
[2023-04-25] MEDS: ENALAPRIL MALEATE 10 MG TABLET PO SCH (09:24)
[2023-04-25] MEDS: FAMOTIDINE 20 MG TABLET PO SCH (09:24)
[2023-04-25 10:20] LABS: TOT PROT 0.9 g/dl (6.4-8.2)
[2023-04-25 16:08] VITALS: BP 149/56; PULSE 70; RESP 18; TEMP 98.7
== END 2023-04-25 16:42 | disposition home or self-care (01) ==
LOC: FER 18:48 → FM/S 21:19
PROVIDERS: ADMIT Internal Medicine
PROC: 3E023GC Introduction of Other Therapeutic Substance into Muscle, Percutaneous Approach (ICD-10-PCS; principal; 2023-04-22)
PROC: 3E033GC Introduction of Other Therapeutic Substance into Peripheral Vein, Percutaneous Approach (ICD-10-PCS; 2023-04-22)
PROC: 3E0337Z Introduction of Electrolytic and Water Balance Substance into Peripheral Vein, Percutaneous Approach (ICD-10-PCS; 2023-04-22)
DX: H81.10 Benign paroxysmal vertigo, unspecified ear (principal); G20 Parkinson's disease; R77.8 Other specified abnormalities of plasma proteins; H93.11 Tinnitus, right ear; K21.9 Gastro-esophageal reflux disease without esophagitis; K92.9 Disease of digestive system, unspecified; N39.9 Disorder of urinary system, unspecified; Z90.79 Acquired absence of other genital organ(s); I11.0 Hypertensive heart disease with heart failure; I50.9 Heart failure, unspecified; R00.1 Bradycardia, unspecified; E78.5 Hyperlipidemia, unspecified
CPT/HCPCS: 36415; 70450-TC; 70551-TC; 71045-TC-FY; 80048; 80053; 81003; 81015; 82550; 83735; 84100; 84484; 85027; 85610; 85730; 93005; 93306-TC; 96361; 96372; 96374; 96375; 97116-GP; 97162-GP; 99285-25; G0378

== ENCOUNTER 2023-07-29 15:13 | Inpatient (IN) | payer OTHER ==
[2023-07-29] MEDS ORDERED: SODIUM CHLORIDE 0.9% 1000 ML INFUS.BAG IV ONE ×2 (15:17→18:53)
[2023-07-29 15:47] LABS: ALBUMIN 4.3 g/dl (3.4-5.0); BILIRUBIN,TOTAL 0.8 mg/dl (0.2-1); CALCIUM 9.7 mg/dl (8.5-10.1); CREATININE 1.5 mg/dl (0.6-1.3); POTASSIUM 3.9 mmol/L (3.5-5.1); TOT PROT 6.8 g/dl (6.4-8.2)
[2023-07-29 15:48] LABS: HEMATOCRIT 37.1 % (32.4-45.2); HEMOGLOBIN 12.4 G/dL (10.7-15.3); MCHC 33.4 g/dl (32.0-36.0); MEAN CELL VOLUME 92.8 fl (80-96); MEAN PLT VOLUME 8.3 fl (7.5-11.1); PLATELET COUNT 229.9 10^3/uL (134-434); RDW 14.4 % (11.6-15.6)
[2023-07-29 16:36] LABS: PLATELET ESTIMATE ADEQUATE
[2023-07-29 16:37] LABS: EPITHELIAL CELLS 0-5 /hpf
[2023-07-29] MEDS ORDERED: cefTRIAXone SODIUM 1 GM VIAL ONE (17:58)
[2023-07-29] MEDS ORDERED: DOCUSATE SODIUM 100 MG CAPSULE (FP) PO PRN (21:52)
[2023-07-29] MEDS ORDERED: SODIUM CHLORIDE 1,000 ML IV SCH (22:00)
[2023-07-30] MEDS: ACETAMINOPHEN 325 MG TABLET (FP) PO PRN ×2 (00:17→21:17)
[2023-07-30] MEDS ORDERED: MECLIZINE HCL 25 MG TABLET (FP) PO PRN (06:58)
[2023-07-30 08:23] LABS: HEMATOCRIT 32.9 % (32.4-45.2); MCH 30.7 pg (25.7-33.7); MCHC 33.3 g/dl (32.0-36.0); MEAN CELL VOLUME 92.1 fl (80-96); MEAN PLT VOLUME 8.8 fl (7.5-11.1); RBC 3.57 10^6/uL (3.60-5.2); RDW 14.3 % (11.6-15.6); WHITE BLOOD COUNT 12.6 10^3/uL (4.0-10.8)
[2023-07-30] MEDS ORDERED: PATIENT'S OWN MEDICATION (NON-FORMULARY) (Famotidine [Pepcid] 40 MG Tablet) PO SCH (10:00)
[2023-07-30] MEDS: CEFTRIAXONE 1 GM in DEXTROSE 5%-WATER - 50 ML IVPB SCH (10:31)
[2023-07-30] MEDS: PANTOPRAZOLE SODIUM 40 MG VIAL IVPUSH SCH ×2 (10:31→21:17)
[2023-07-30 11:01] LABS: POTASSIUM 3.9 mmol/L (3.5-5.1)
[2023-07-30 11:03] LABS: CALCIUM 8.1 mg/dL (8.5-10.1)
[2023-07-30 11:04] LABS: BLOOD UREA NITROGEN 32.7 mg/dL (7-18); MAGNESIUM 1.6 mg/dL (1.8-2.4)
[2023-07-30 11:07] LABS: CREATININE 1.3 mg/dL (0.55-1.3); PHOSPHOROUS 3.7 mg/dL (2.5-4.9)
[2023-07-30 15:40] LABS: HEMATOCRIT 33.5 % (32.4-45.2); HEMOGLOBIN 11.1 G/dL (10.7-15.3); MCH 30.5 pg (25.7-33.7); MCHC 33.2 g/dl (32.0-36.0); MEAN CELL VOLUME 92.1 fl (80-96); MEAN PLT VOLUME 8.3 fl (7.5-11.1); PLATELET COUNT 172.3 10^3/uL (134-434); RBC 3.64 10^6/uL (3.60-5.2); RDW 13.9 % (11.6-15.6); WHITE BLOOD COUNT 12.2 10^3/uL (4.0-10.8)
[2023-07-30 16:08] LABS: PLATELET ESTIMATE ADEQUATE
[2023-07-30 21:15] LABS: BASO % 0.1 % (0-2.0); EOS % 0.2 % (0-4.5); HEMATOCRIT 31.7 % (32.4-45.2); HEMOGLOBIN 10.8 GM/dL (10.7-15.3); LYMPH % 11.6 % (8-40); MCH 30.2 pg (25.7-33.7); MEAN PLT VOLUME 7.9 fl (7.5-11.1); MONO % 6.6 % (3.8-10.2); NEUT % 81.5 % (42.8-82.8); PLATELET COUNT 171 10^3/uL (134-434); RBC 3.56 M/mm3 (3.60-5.2); RDW 13.9 % (11.6-15.6); WHITE BLOOD COUNT 11.7 K/mm3 (4.0-10.0)
[2023-07-31] MEDS: SODIUM CHLORIDE 1,000 ML IV SCH (08:54)
[2023-07-31] MEDS: PANTOPRAZOLE SODIUM 40 MG VIAL IVPUSH SCH ×2 (09:31→21:20)
[2023-07-31] MEDS: CEFTRIAXONE 1 GM in DEXTROSE 5%-WATER - 50 ML IVPB SCH (09:31)
[2023-07-31] MEDS ORDERED: CEFTRIAXONE 1 GM in DEXTROSE 5%-WATER - 50 ML IVPB SCH (10:00)
[2023-07-31 10:49] LABS: BASO % 0.2 % (0-2.0); EOS % 0.7 % (0-4.5); HEMATOCRIT 30.7 % (32.4-45.2); HEMOGLOBIN 10.1 GM/dL (10.7-15.3); LYMPH % 10.5 % (8-40); MCH 30.3 pg (25.7-33.7); MEAN CELL VOLUME 91.9 fl (80-96); MEAN PLT VOLUME 8.3 fl (7.5-11.1); NEUT % 82.6 % (42.8-82.8); PLATELET COUNT 163 10^3/uL (134-434); RBC 3.34 M/mm3 (3.60-5.2); RDW 13.8 % (11.6-15.6); WHITE BLOOD COUNT 11.4 K/mm3 (4.0-10.0)
[2023-07-31 11:03] LABS: POTASSIUM 3.4 mmol/L (3.5-5.1)
[2023-07-31 11:05] LABS: ALBUMIN 2.4 g/dl (3.4-5.0); BLOOD UREA NITROGEN 21.2 mg/dL (7-18)
[2023-07-31 11:10] LABS: BILIRUBIN,TOTAL 0.6 mg/dL (0.2-1)
[2023-07-31] MEDS: KCL 10 MEQ IVPB 10 MEQ/100 ML INFUS.BAG IVPB SCH ×2 (18:10→20:31)
[2023-07-31 21:16] LABS: BASO % 0.3 % (0-2.0); HEMOGLOBIN 10.1 GM/dL (10.7-15.3); LYMPH % 11.5 % (8-40); MCH 30.6 pg (25.7-33.7); MCHC 33.8 g/dl (32.0-36.0); MEAN CELL VOLUME 90.5 fl (80-96); MEAN PLT VOLUME 7.9 fl (7.5-11.1); MONO % 7.1 % (3.8-10.2); NEUT % 80.1 % (42.8-82.8); PLATELET COUNT 171 10^3/uL (134-434); RBC 3.31 M/mm3 (3.60-5.2); WHITE BLOOD COUNT 10.5 K/mm3 (4.0-10.0)
[2023-08-01 07:59] LABS: BASO % 0.3 % (0-2.0); EOS % 1.7 % (0-4.5); HEMATOCRIT 30.4 % (32.4-45.2); HEMOGLOBIN 10.2 GM/dL (10.7-15.3); LYMPH % 13.7 % (8-40); MCH 30.5 pg (25.7-33.7); MCHC 33.5 g/dl (32.0-36.0); MEAN CELL VOLUME 90.9 fl (80-96); MONO % 5.9 % (3.8-10.2); NEUT % 78.4 % (42.8-82.8); PLATELET COUNT 185 10^3/uL (134-434); RBC 3.35 M/mm3 (3.60-5.2); RDW 13.7 % (11.6-15.6); WHITE BLOOD COUNT 8.8 K/mm3 (4.0-10.0)
[2023-08-01 08:16] LABS: POTASSIUM 3.5 mmol/L (3.5-5.1)
[2023-08-01 08:21] LABS: BLOOD UREA NITROGEN 13.8 mg/dL (7-18)
[2023-08-01 08:24] LABS: CREATININE 0.9 mg/dL (0.55-1.3)
[2023-08-01 08:30] LABS: N-TERMINAL BNP 1145.4 pg/ml (5-450)
[2023-08-01] MEDS: CEFTRIAXONE 1 GM in DEXTROSE 5%-WATER - 50 ML IVPB SCH (13:11)
[2023-08-01] MEDS: SODIUM CHLORIDE 1,000 ML IV SCH (13:13)
[2023-08-01] MEDS: PANTOPRAZOLE SODIUM 40 MG VIAL IVPUSH SCH (14:14)
[2023-08-01] MEDS ORDERED: BISACODYL 5 MG TABLET.DR (FP) PO ONE (16:00)
[2023-08-01] MEDS ORDERED: PEG 3350/NA SULF BICARB CL/KCL 4000 ML SOLN.RECON PO ONE (17:00)
[2023-08-01] MEDS ORDERED: ONDANSETRON 4 MG/2 ML VIAL IVPUSH ONE (20:48)
[2023-08-02 08:40] LABS: BASO % 0.4 % (0-2.0); EOS % 2.8 % (0-4.5); HEMATOCRIT 34.2 % (32.4-45.2); HEMOGLOBIN 11.4 GM/dL (10.7-15.3); MCHC 33.2 g/dl (32.0-36.0); MEAN CELL VOLUME 90.4 fl (80-96); MEAN PLT VOLUME 8.1 fl (7.5-11.1); MONO % 6.6 % (3.8-10.2); NEUT % 73.2 % (42.8-82.8); PLATELET COUNT 243 10^3/uL (134-434); RBC 3.78 M/mm3 (3.60-5.2); RDW 13.9 % (11.6-15.6); WHITE BLOOD COUNT 7.6 K/mm3 (4.0-10.0)
[2023-08-02 08:52] LABS: POTASSIUM 3.3 mmol/L (3.5-5.1)
[2023-08-02 08:56] LABS: ALBUMIN 2.7 g/dl (3.4-5.0); BLOOD UREA NITROGEN 8.2 mg/dL (7-18); CALCIUM 8.1 mg/dL (8.5-10.1); MAGNESIUM 1.4 mg/dL (1.8-2.4)
[2023-08-02 08:59] LABS: CREATININE 0.9 mg/dL (0.55-1.3); PHOSPHOROUS 3.2 mg/dL (2.5-4.9)
[2023-08-02 09:01] LABS: BILIRUBIN,TOTAL 0.6 mg/dL (0.2-1); TOT PROT 5.5 g/dl (6.4-8.2)
[2023-08-02] MEDS: SODIUM CHLORIDE 1,000 ML IV SCH (09:18)
[2023-08-02] MEDS: PANTOPRAZOLE 20 MG TABLET PO SCH (09:23)
[2023-08-02] MEDS ORDERED: MAGNESIUM SULF 50% (8.12 MEQ/2 ML-1 GM VIAL) IVPB ONE (10:18)
[2023-08-02] MEDS: KCL 10 MEQ IVPB 10 MEQ/100 ML INFUS.BAG IVPB SCH ×4 (10:45→16:18)
[2023-08-02] MEDS: CEFTRIAXONE 1 GM in DEXTROSE 5%-WATER - 50 ML IVPB SCH (16:05)
[2023-08-02] MEDS ORDERED: KCL 10 MEQ IVPB 10 MEQ/100 ML INFUS.BAG IVPB SCH (16:15)
[2023-08-02] MEDS: LACTATED RINGERS SOLUTION 1,000 ML/1,000 ML INFUS.BAG IV SCH (18:51)
[2023-08-03] MEDS: CEFTRIAXONE 1 GM in DEXTROSE 5%-WATER - 50 ML IVPB SCH (05:58)
[2023-08-03] MEDS: LACTATED RINGERS SOLUTION 1,000 ML/1,000 ML INFUS.BAG IV SCH ×2 (05:59→17:17)
[2023-08-03 08:46] LABS: BASO % 0.4 % (0-2.0); EOS % 5.6 % (0-4.5); HEMATOCRIT 30.8 % (32.4-45.2); HEMOGLOBIN 10.4 GM/dL (10.7-15.3); LYMPH % 24.9 % (8-40); MCH 30.3 pg (25.7-33.7); MCHC 33.8 g/dl (32.0-36.0); MEAN CELL VOLUME 89.6 fl (80-96); MEAN PLT VOLUME 7.8 fl (7.5-11.1); MONO % 7.2 % (3.8-10.2); NEUT % 61.9 % (42.8-82.8); PLATELET COUNT 239 10^3/uL (134-434); RBC 3.44 M/mm3 (3.60-5.2); RDW 13.5 % (11.6-15.6); WHITE BLOOD COUNT 4.9 K/mm3 (4.0-10.0)
[2023-08-03 08:58] LABS: POTASSIUM 3.4 mmol/L (3.5-5.1)
[2023-08-03 09:00] LABS: CALCIUM 7.8 mg/dL (8.5-10.1)
[2023-08-03 09:01] LABS: ALBUMIN 2.4 g/dl (3.4-5.0); BLOOD UREA NITROGEN 5.5 mg/dL (7-18); MAGNESIUM 1.6 mg/dL (1.8-2.4)
[2023-08-03 09:04] LABS: CREATININE 0.8 mg/dL (0.55-1.3); PHOSPHOROUS 2.6 mg/dL (2.5-4.9)
[2023-08-03 09:05] LABS: BILIRUBIN,TOTAL 0.3 mg/dL (0.2-1); TOT PROT 4.9 g/dl (6.4-8.2)
[2023-08-03] MEDS: PANTOPRAZOLE 20 MG TABLET PO SCH (09:35)
[2023-08-03] MEDS ORDERED: MAGNESIUM SULF 50% (8.12 MEQ/2 ML-1 GM VIAL) IVPB ONE (14:15)
[2023-08-04] MEDS: LACTATED RINGERS SOLUTION 1,000 ML/1,000 ML INFUS.BAG IV SCH ×2 (02:00→18:42)
[2023-08-04] MEDS: CEFTRIAXONE 1 GM in DEXTROSE 5%-WATER - 50 ML IVPB SCH (06:11)
[2023-08-04 07:52] LABS: BASO % 0.4 % (0-2.0); EOS % 5.8 % (0-4.5); HEMATOCRIT 30.7 % (32.4-45.2); HEMOGLOBIN 10.3 GM/dL (10.7-15.3); LYMPH % 25.6 % (8-40); MCH 29.8 pg (25.7-33.7); MCHC 33.6 g/dl (32.0-36.0); MEAN CELL VOLUME 88.7 fl (80-96); MEAN PLT VOLUME 7.6 fl (7.5-11.1); MONO % 8.9 % (3.8-10.2); NEUT % 59.3 % (42.8-82.8); PLATELET COUNT 257 10^3/uL (134-434); RBC 3.46 M/mm3 (3.60-5.2); RDW 13.4 % (11.6-15.6); WHITE BLOOD COUNT 4.2 K/mm3 (4.0-10.0)
[2023-08-04 08:03] LABS: POTASSIUM 3.4 mmol/L (3.5-5.1)
[2023-08-04 08:05] LABS: ALBUMIN 2.5 g/dl (3.4-5.0); CALCIUM 7.9 mg/dL (8.5-10.1)
[2023-08-04 08:06] LABS: BLOOD UREA NITROGEN 4.2 mg/dL (7-18)
[2023-08-04 08:08] LABS: CREATININE 0.7 mg/dL (0.55-1.3)
[2023-08-04 08:09] LABS: PHOSPHOROUS 2.7 mg/dL (2.5-4.9)
[2023-08-04 08:10] LABS: BILIRUBIN,TOTAL 0.3 mg/dL (0.2-1); TOT PROT 4.9 g/dl (6.4-8.2)
[2023-08-04] MEDS ORDERED: POTASSIUM CHLORIDE TABS 20 MEQ TABLET.ER (FP) PO ONE (08:29)
[2023-08-04 08:33] LABS: MAGNESIUM 1.7 mg/dL (1.8-2.4)
[2023-08-04] MEDS: PANTOPRAZOLE 20 MG TABLET PO SCH (10:15)
[2023-08-05] MEDS: LACTATED RINGERS SOLUTION 1,000 ML/1,000 ML INFUS.BAG IV SCH (04:41)
[2023-08-05] MEDS: CEFTRIAXONE 1 GM in DEXTROSE 5%-WATER - 50 ML IVPB SCH (06:20)
[2023-08-05 07:37] LABS: BASO % 0.4 % (0-2.0); EOS % 6.3 % (0-4.5); HEMATOCRIT 31.2 % (32.4-45.2); LYMPH % 22.8 % (8-40); MCH 30.6 pg (25.7-33.7); MCHC 35.2 g/dl (32.0-36.0); MEAN CELL VOLUME 86.8 fl (80-96); MEAN PLT VOLUME 7.4 fl (7.5-11.1); MONO % 10.9 % (3.8-10.2); NEUT % 59.6 % (42.8-82.8); PLATELET COUNT 272 10^3/uL (134-434); RDW 13.4 % (11.6-15.6)
[2023-08-05 09:16] LABS: CHLORIDE 101 mmol/L (98-107); POTASSIUM 3.9 mmol/L (3.5-5.1); SODIUM 137 mmol/L (136-145)
[2023-08-05 09:26] LABS: ALBUMIN 2.8 g/dl (3.4-5.0); ANION GAP 5 mmol/L (4-13); CALCIUM 8.2 mg/dL (8.5-10.1); CO2 30 mmol/L (21-32); GLUCOSE,RANDOM 101 mg/dL (74-106); MAGNESIUM 1.5 mg/dL (1.8-2.4)
[2023-08-05 09:29] LABS: CREATININE 0.8 mg/dL (0.55-1.3); PHOSPHOROUS 3.1 mg/dL (2.5-4.9); SGOT/AST 19 U/L (15-37); SGPT/ALT 9 U/L (13-61)
[2023-08-05 09:31] LABS: BILIRUBIN,TOTAL 0.5 mg/dL (0.2-1); TOT PROT 5.3 g/dl (6.4-8.2)
[2023-08-05 09:32] LABS: ALK PHOS 54 U/L (45-117)
[2023-08-05 09:34] LABS: BLOOD UREA NITROGEN 2.9 mg/dL (7-18)
[2023-08-05] MEDS: PANTOPRAZOLE 20 MG TABLET PO SCH (10:24)
[2023-08-05] MEDS ORDERED: ACETAMINOPHEN 325 MG TABLET (FP) PO PRN (11:21)
[2023-08-05] MEDS ORDERED: MECLIZINE HCL 25 MG TABLET (FP) PO PRN (11:21)
[2023-08-05] MEDS ORDERED: CEFTRIAXONE 1 GM in DEXTROSE 5%-WATER - 50 ML IVPB SCH (17:30)
[2023-08-05] MEDS ORDERED: MAGNESIUM SULF 50% (8.12 MEQ/2 ML-1 GM VIAL) IVPB ONE ×2 (19:00→22:30)
[2023-08-06] MEDS ORDERED: CEFTRIAXONE 1 GM in DEXTROSE 5%-WATER - 50 ML IVPB SCH (06:00)
[2023-08-06] MEDS: CEFTRIAXONE 1 GM in DEXTROSE 5%-WATER - 50 ML IVPB SCH (09:07)
[2023-08-06 09:08] LABS: BASO % 0.3 % (0-2.0); HEMATOCRIT 35.4 % (32.4-45.2); HEMOGLOBIN 12.3 GM/dL (10.7-15.3); MCH 30.8 pg (25.7-33.7); MCHC 34.7 g/dl (32.0-36.0); MEAN CELL VOLUME 88.8 fl (80-96); MEAN PLT VOLUME 7.3 fl (7.5-11.1); MONO % 11.3 % (3.8-10.2); NEUT % 56.4 % (42.8-82.8); PLATELET COUNT 327 10^3/uL (134-434); RBC 3.99 M/mm3 (3.60-5.2); RDW 13.3 % (11.6-15.6); WHITE BLOOD COUNT 4.7 K/mm3 (4.0-10.0)
[2023-08-06 09:17] LABS: POTASSIUM 3.9 mmol/L (3.5-5.1)
[2023-08-06 10:00] LABS: CALCIUM 8.5 mg/dL (8.5-10.1)
[2023-08-06] MEDS ORDERED: PANTOPRAZOLE 20 MG TABLET PO SCH (10:00)
[2023-08-06 10:01] LABS: BLOOD UREA NITROGEN 3.6 mg/dL (7-18)
[2023-08-06 10:03] LABS: CREATININE 0.8 mg/dL (0.55-1.3)
[2023-08-06 10:04] LABS: ALBUMIN 2.8 g/dl (3.4-5.0); BILIRUBIN,TOTAL 0.5 mg/dL (0.2-1); PHOSPHOROUS 3.2 mg/dL (2.5-4.9); TOT PROT 5.5 g/dl (6.4-8.2)
[2023-08-06] MEDS: LACTATED RINGERS SOLUTION 1,000 ML/1,000 ML INFUS.BAG IV SCH (18:31)
[2023-08-06 19:46] VITALS: BMI 25.2
[2023-08-07 09:22] LABS: BASO % 0.3 % (0-2.0); EOS % 4.9 % (0-4.5); HEMOGLOBIN 11.4 GM/dL (10.7-15.3); LYMPH % 26.2 % (8-40); MCH 29.8 pg (25.7-33.7); MCHC 33.4 g/dl (32.0-36.0); MEAN CELL VOLUME 89.1 fl (80-96); MEAN PLT VOLUME 7.1 fl (7.5-11.1); MONO % 13.6 % (3.8-10.2); PLATELET COUNT 323 10^3/uL (134-434); RBC 3.81 M/mm3 (3.60-5.2); WHITE BLOOD COUNT 3.6 K/mm3 (4.0-10.0)
[2023-08-07] MEDS: CEFTRIAXONE 1 GM in DEXTROSE 5%-WATER - 50 ML IVPB SCH (09:43)
[2023-08-07 09:49] LABS: ALBUMIN 2.8 g/dl (3.4-5.0)
[2023-08-07 09:50] LABS: BLOOD UREA NITROGEN 4.4 mg/dL (7-18); CREATININE 0.9 mg/dL (0.55-1.3); MAGNESIUM 1.8 mg/dL (1.8-2.4)
[2023-08-07 09:51] LABS: BILIRUBIN,TOTAL 0.4 mg/dL (0.2-1); CALCIUM 8.2 mg/dL (8.5-10.1); TOT PROT 5.4 g/dl (6.4-8.2)
[2023-08-07] MEDS: LACTATED RINGERS SOLUTION 1,000 ML/1,000 ML INFUS.BAG IV SCH (12:26)
[2023-08-08 09:24] LABS: BASO % 0.3 % (0-2.0); EOS % 4.9 % (0-4.5); HEMATOCRIT 35.3 % (32.4-45.2); HEMOGLOBIN 11.8 GM/dL (10.7-15.3); LYMPH % 30.8 % (8-40); MCH 29.9 pg (25.7-33.7); MCHC 33.3 g/dl (32.0-36.0); MEAN CELL VOLUME 89.8 fl (80-96); MEAN PLT VOLUME 6.9 fl (7.5-11.1); MONO % 10.1 % (3.8-10.2); NEUT % 53.9 % (42.8-82.8); PLATELET COUNT 385 10^3/uL (134-434); RBC 3.93 M/mm3 (3.60-5.2); WHITE BLOOD COUNT 4.1 K/mm3 (4.0-10.0)
[2023-08-08] MEDS: CEFTRIAXONE 1 GM in DEXTROSE 5%-WATER - 50 ML IVPB SCH (09:38)
[2023-08-08 10:01] LABS: BLOOD UREA NITROGEN 4.1 mg/dL (7-18); CALCIUM 8.5 mg/dL (8.5-10.1); MAGNESIUM 1.7 mg/dL (1.8-2.4)
[2023-08-08 10:03] LABS: CREATININE 0.9 mg/dL (0.55-1.3)
[2023-08-08 10:06] LABS: BILIRUBIN,TOTAL 0.5 mg/dL (0.2-1); TOT PROT 5.8 g/dl (6.4-8.2)
[2023-08-08] MEDS ORDERED: SIMETHICONE 80 MG TAB.CHEW (FP) PO PRN (10:17)
[2023-08-08] MEDS ORDERED: MAGNESIUM SULF 50% (8.12 MEQ/2 ML-1 GM VIAL) IVPB ONE (12:00)
[2023-08-08] MEDS: LACTATED RINGERS SOLUTION 1,000 ML/1,000 ML INFUS.BAG IV SCH (13:15)
[2023-08-09 09:21] LABS: BASO % 0.2 % (0-2.0); HEMATOCRIT 31.2 % (32.4-45.2); HEMOGLOBIN 10.9 GM/dL (10.7-15.3); LYMPH % 31.7 % (8-40); MCH 30.8 pg (25.7-33.7); MCHC 34.9 g/dl (32.0-36.0); MEAN CELL VOLUME 88.1 fl (80-96); MEAN PLT VOLUME 7.2 fl (7.5-11.1); NEUT % 54.1 % (42.8-82.8); PLATELET COUNT 348 10^3/uL (134-434); RBC 3.55 M/mm3 (3.60-5.2); RDW 13.9 % (11.6-15.6); WHITE BLOOD COUNT 3.7 K/mm3 (4.0-10.0)
[2023-08-09 09:43] LABS: POTASSIUM 4.3 mmol/L (3.5-5.1)
[2023-08-09 09:58] LABS: BLOOD UREA NITROGEN 5.1 mg/dL (7-18)
[2023-08-09 10:02] LABS: ALBUMIN 2.9 g/dl (3.4-5.0); BILIRUBIN,TOTAL 0.4 mg/dL (0.2-1); CALCIUM 8.3 mg/dL (8.5-10.1); CREATININE 0.9 mg/dL (0.55-1.3); MAGNESIUM 1.9 mg/dL (1.8-2.4); TOT PROT 5.6 g/dl (6.4-8.2)
[2023-08-09] MEDS: CEFTRIAXONE 1 GM in DEXTROSE 5%-WATER - 50 ML IVPB SCH (10:42)
[2023-08-09] MEDS: LACTATED RINGERS SOLUTION 1,000 ML/1,000 ML INFUS.BAG IV SCH (11:30)
[2023-08-09] MEDS: POLYETHYLENE GLYCOL (HEALTHYLAX) 3350 17 GM PACKET PO SCH ×2 (15:51→21:28)
[2023-08-09] MEDS: metroNIDAZOLE 250 MG TABLET PO SCH (21:28)
[2023-08-09] MEDS: CEPHALEXIN MONOHYDRATE 250 MG CAPSULE (FP) PO SCH (21:28)
[2023-08-10] MEDS: metroNIDAZOLE 250 MG TABLET PO SCH (05:34)
[2023-08-10] MEDS: CEPHALEXIN MONOHYDRATE 250 MG CAPSULE (FP) PO SCH (05:34)
[2023-08-10 09:33] VITALS: BP 135/67; PULSE 73; RESP 20; TEMP 98
[2023-08-10] MEDS: POLYETHYLENE GLYCOL (HEALTHYLAX) 3350 17 GM PACKET PO SCH (09:33)
[2023-08-10] MEDS ORDERED: PANTOPRAZOLE 20 MG TABLET PO SCH (10:00)
[2023-08-10] MEDS ORDERED: CEFUROXIME AXETIL 250 MG TABLET PO SCH (10:00)
== END 2023-08-10 12:52 | disposition home or self-care (01) | DRG 378 ==
LOC: FER 15:13 → FM/S 17:18 → J4S 07-30 18:52 → OBSVTOIN 08-02 10:26 → J4W 08-05 00:07 → J8W 08-05 10:46 → J4W 08-05 11:22 → J8W 08-05 12:29
PROVIDERS: ADMIT Internal Medicine; ATTEND Nurse Practitioner Family
PROC: 0DB68ZX Excision of Stomach, Via Natural or Artificial Opening Endoscopic, Diagnostic (ICD-10-PCS; principal; 2023-08-01 11:30)
PROC: 0DBM8ZX Excision of Descending Colon, Via Natural or Artificial Opening Endoscopic, Diagnostic (ICD-10-PCS; 2023-08-02)
DX: K92.2 Gastrointestinal hemorrhage, unspecified (principal); K55.9 Vascular disorder of intestine, unspecified; N39.0 Urinary tract infection, site not specified; K56.7 Ileus, unspecified; N17.9 Acute kidney failure, unspecified; R55 Syncope and collapse; K52.9 Noninfective gastroenteritis and colitis, unspecified; I10 Essential (primary) hypertension; E86.0 Dehydration; K59.00 Constipation, unspecified; K44.9 Diaphragmatic hernia without obstruction or gangrene; K64.8 Other hemorrhoids
CPT/HCPCS: 0241U-QW; 36415; 70450-TC; 71045-TC-FY; 74018-TC-FY; 74019-TC-FY; 74021-TC-FY; 74177-TC; 80048; 80053; 80061; 81003; 81015; 82272; 82728; 83036; 83540; 83550; 83605; 83735; 83880; 84100; 84439; 84443; 84484; 85025; 85027; 86140; 86850; 86900; 86901; 87040; 87086; 88305-TC; 88342-TC; 93005; 93306-TC; 97116-GP; 97161-GP; 99285-25; G0378; Q9967

== ENCOUNTER 2025-03-07 17:37 | Inpatient (IN) | payer OTHER ==
[2025-03-07] MEDS: LACTATED RINGERS SOLUTION 1000 ML INFUS.BAG IV ONE (19:13)
[2025-03-07] MEDS: METOCLOPRAMIDE HCL INJECTION 10 MG/2 ML VIAL IVPB ONE (19:13)
[2025-03-07] MEDS: ACETAMINOPHEN 1000 MG/100 ML BAG IVPB ONE (19:13)
[2025-03-07] MEDS ORDERED: METOCLOPRAMIDE HCL INJECTION 10 MG/2 ML VIAL ONE (19:14)
[2025-03-07] MEDS ORDERED: ACETAMINOPHEN INJECTION 100 ML ONE (19:14)
[2025-03-07 19:23] LABS: HEMATOCRIT 35.6 % (34.1-44.9); HEMOGLOBIN 12.3 g/dL (11.2-15.7); MCHC 34.6 g/dl (32.2-35.5); MEAN PLT VOLUME 9.6 fl (9.4-12.3); PLATELET COUNT 235 x10^3/uL (182-369); RDW 12.9 % (12.5-17.0)
[2025-03-07 19:46] LABS: ALBUMIN 4.3 g/dl (3.4-5.0); BILIRUBIN,TOTAL 1.1 mg/dl (0.2-1); CALCIUM 9.4 mg/dl (8.5-10.1); CREATININE 1.1 mg/dl (0.6-1.3); MAGNESIUM 1.6 mg/dL (1.8-2.4); POTASSIUM 4.8 mmol/L (3.5-5.1); TOT PROT 6.7 g/dl (6.4-8.2)
[2025-03-07 20:06] LABS: EPITHELIAL CELLS 0-5 /hpf
[2025-03-07 20:07] LABS: URIC ACID CRYSTALS FEW /hpf (NONE SEEN)
[2025-03-07] MEDS ORDERED: MECLIZINE HCL 25 MG TABLET (FP) ONE (20:12)
[2025-03-07] MEDS: MECLIZINE HCL 25 MG TABLET (FP) PO ONE (20:13)
[2025-03-07] MEDS ORDERED: MAGNESIUM SULFATE IN WATER 2 GM/50 ML IVPB IVPB ONE (20:57)
[2025-03-07] MEDS: MAGNESIUM SULF 50% (8.12 MEQ/2 ML-1 GM VIAL) IVPB ONE (20:59)
[2025-03-07 21:02] LABS: INR 0.99 (0.83-1.09)
[2025-03-07 21:04] LABS: ACTIVATED PTT 21.8 SECONDS (25.2-36.5)
[2025-03-07] MEDS: CEFTRIAXONE 1 G/50 ML PREMIX 50 ML IVPB ONE (22:57)
[2025-03-07] MEDS: SODIUM CHLORIDE 0.45% 1,000 ML IV SCH (22:57)
[2025-03-07] MEDS: ENOXAPARIN NA (PORCINE) 30 MG/0.3 ML DISP.SYRIN SQ SCH (22:57)
[2025-03-08 05:52] VITALS: BMI 26.6
[2025-03-08] MEDS: amLODIPine BESYLATE 5 MG TABLET (FP) PO SCH (06:33)
[2025-03-08 07:54] LABS: EOSINOPHIL % 1.7 % (0.7-5.8); EOSINOPHILS # 0.06 x10^3/uL (0.04-0.36); HEMATOCRIT 35.4 % (34.1-44.9); HEMOGLOBIN 11.8 g/dL (11.2-15.7); MCHC 33.3 g/dl (32.2-35.5); MEAN CELL VOLUME 91.9 fl (79.4-94.8); MEAN PLT VOLUME 9.5 fl (9.4-12.3); MONOCYTE # 0.42 x10^3/uL (0.24-0.86); MONOCYTE % 11.9 % (4.7-12.5); PLATELET COUNT 220 x10^3/uL (182-369); RDW 12.9 % (12.5-17.0)
[2025-03-08 08:09] LABS: CALCIUM 8.9 mg/dl (8.5-10.1); MAGNESIUM 1.9 mg/dL (1.8-2.4); PHOSPHOROUS 3.7 (2.5-4.9); POTASSIUM 4.1 mmol/L (3.5-5.1)
[2025-03-08] MEDS: CEFTRIAXONE 1 GM in DEXTROSE 5%-WATER - 50 ML IVPB ONE (09:36)
[2025-03-08] MEDS: FAMOTIDINE 20 MG TABLET PO SCH (09:36)
[2025-03-08] MEDS ORDERED: amLODIPine BESYLATE 2.5 MG TABLET (FP) PO SCH (22:00)
[2025-03-08] MEDS ORDERED: amLODIPine BESYLATE 5 MG TABLET (FP) PO SCH (22:00)
[2025-03-09 06:52] VITALS: BP 164/71; PULSE 57; RESP 18; TEMP 97.5
== END 2025-03-09 11:19 | disposition home or self-care (01) | DRG 641 ==
LOC: FER 17:37 → FM/S 20:27 → OBSVTOIN 21:24
PROVIDERS: ADMIT Internal Medicine
DX: E87.1 Hypo-osmolality and hyponatremia (principal); I10 Essential (primary) hypertension; K21.9 Gastro-esophageal reflux disease without esophagitis; R51.9 Headache, unspecified; E83.42 Hypomagnesemia; R42 Dizziness and giddiness; R11.0 Nausea
CPT/HCPCS: 0241U-QW; 36415; 70450-TC; 71046-TC-FY; 80048; 80053; 81003; 81015; 83735; 83880; 84100; 84484; 85025; 85610; 85730; 87086; 93005; 93306-TC; 97116-GP; 97162-GP; 99285-25; G0378